=== PATIENT | male | born 1940 | race Caucasian/White ===

== ENCOUNTER 2020-06-10 16:47 | Outpatient (CLI) | payer MEDICARE ==
[2020-06-10 20:07] LABS: BASOPHILS % (AUTO) 0.5 %; EOSINOPHILS # (AUTO) 0.4 10^3/uL (0.0-0.7); EOSINOPHILS % (AUTO) 5.2 %; HGB - HEMOGLOBIN 13.3 g/dL (14.0-18.0); LYMPHOCYTES # (AUTO) 1.8 10^3/uL (1.5-3.5); LYMPHOCYTES % (AUTO) 22.8 %; MEAN CORPUSCULAR HEMOGLOBIN 31.7 pg (27.0-31.0); MEAN CORPUSCULAR HGB CONC 31.1 g/dL (32.0-36.0); MEAN CORPUSCULAR VOLUME 101.9 fL (80.0-94.0); MEAN PLATELET VOLUME 11.3 fL (7.4-11.4); MONOCYTES # (AUTO) 0.6 10^3/uL (0.0-1.0); MONOCYTES % (AUTO) 7.8 %; NEUTROPHILS # (AUTO) 5.1 10^3/uL (1.5-6.6); PLT - PLATELET COUNT 172 10^3/uL (130-450); RED BLOOD COUNT 4.19 10^6/uL (4.70-6.10); RED CELL DISTRIBUTION WIDTH 12.8 % (12.0-15.0); WHITE BLOOD COUNT 8.1 x10^3/uL (4.8-10.8)
[2020-06-10 20:23] LABS: ALBUMIN 3.7 g/dL (3.2-5.5); ALBUMIN/GLOBULIN RATIO 0.9 (1.0-2.2); ALKALINE PHOSPHATASE 83 IU/L (42-121); ALT ALANINE AMINOTRANSFERASE 16 IU/L (10-60); AST ASPARTATE AMINOTRANSFERASE 17 IU/L (10-42); BILIRUBIN,TOTAL 0.4 mg/dL (0.2-1.0); BUN - BLOOD UREA NITROGEN 22 mg/dL (6-20); CALCIUM 9.2 mg/dL (8.5-10.3); CARBON DIOXIDE - CO2 29 mmol/L (21-32); CHLORIDE 102 mmol/L (101-111); CHOL/HDL RATIO 3.4 (<5.0); CHOLESTEROL 186 mg/dL; CREATININE 1.2 mg/dL (0.6-1.2); GLUCOSE 109 mg/dL (70-100); HDL CHOLESTEROL 55 mg/dL; LDL CHOLESTEROL,CALCULATED 103 mg/dL; LDL/HDL RATIO 1.9 (<3.6); TOTAL PROTEIN 7.6 g/dL (6.7-8.2); VLDL CHOLESTEROL 28 mg/dL
== END 2020-06-10 18:00 ==
LOC: DI.S 16:47
PROVIDERS: ATTEND Internal Medicine
DX: I10 Essential (primary) hypertension (principal); M16.12 Unilateral primary osteoarthritis, left hip
CPT/HCPCS: 36415; 80053; 80061; 83721; 85025

== ENCOUNTER 2020-06-11 14:38 | Outpatient (CLI) | payer MEDICARE ==
--- NOTE | 2020-06-11 15:36 | XRAY Report ---
PROCEDURE: Hip w/Pelvis 2-3V LT INDICATIONS: ARTHRITIS, LEFT HIP TECHNIQUE: AP pelvis with lateral view(s) of the bilateral hip(s). COMPARISON: None. FINDINGS: Bones: No fractures or dislocations. Pelvic ring appears intact. No suspicious bony lesions. Righ t hip arthroplasty. Moderate left hip joint space narrowing. Mild left hip periarticular osteophyte f ormation. Left-sided femoral head buttressing. Soft tissues: The visualized bowel gas pattern is normal. No suspicious soft tissue calcifications. IMPRESSION: 1. Expected appearance of right hip arthroplasty. 2. 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 Further assess ment with MRI is recommended. Reviewed by: Ted Hammond MD on 06/11/2020 3:35 PM PST Approved by: Ted Hammond MD on 06/11/2020 3:35 PM PST Station ID: [id number]
== END 2020-06-11 14:39 | disposition home or self-care (01) ==
LOC: DI.S 14:38
PROVIDERS: ATTEND Internal Medicine
DX: M16.12 Unilateral primary osteoarthritis, left hip (principal); R93.6 Abnormal findings on diagnostic imaging of limbs; Z96.641 Presence of right artificial hip joint

== ENCOUNTER 2020-07-26 12:05 | Outpatient (CLI) | payer MEDICARE | END 2020-07-26 12:06 | disposition home or self-care (01) | LOC: LAB.S 12:05 | PROVIDERS: ATTEND Internal Medicine | DX: R35.8 Other polyuria (principal); Z12.5 Encounter for screening for malignant neoplasm of prostate | CPT/HCPCS: 36415; G0103; 84153 ==

== ENCOUNTER 2020-09-16 21:05 | Outpatient (CLI) | payer MEDICARE | END 2020-09-16 21:06 | disposition critical access hospital (66) | LOC: EMS 21:05 | DX: K22.2 Esophageal obstruction (principal) | CPT/HCPCS: A0425; A0429 ==

== ENCOUNTER 2020-09-16 21:36 | Day surgery (SDC) | payer MEDICARE ==
--- OUTSIDE RECORDS SUMMARY | 2020-09-16 21:43 | EXTERNAL MEDICAL SUMMARY RPT | Continuity of Care Document ---
:1940 Demographics Phone Unavailable Preferred Language Unknown Marital Status Unknown Adventism Affiliation Unknown Race Unknown Ethnic Group Unknown Author Organization [facility] Address [address] [phone] Phone Social History date description facility [phone]
[2020-09-16] MEDS ORDERED: GLUCAGON 1 MG/ML VIAL IVP STA (23:02)
--- NOTE | 2020-09-17 01:46 | ED Physician Documentation ---
History of Present Illness - Stated complaint Stated Complaint: DIFFICULTY SWALLOWING - Chief complaint Chief Complaint: Resp - History obtained from History obtained from: Patient - Additonal information Additional information: 80-year-old man with past medical history of high blood pressure and hyperlipidemia presents with bolus sensation in throat after eating dinner this evening of carrots and steak and swallowing acute bite of steak with sensation that it is stuck at the bottom of the esophagus. Patient is breathing normally and able to tolerate his saliva, however when he tries to drink he immediately spits it back up. He is in mild to moderate discomfort in the lower neck area, nonradiating, sudden in onset at the time of swallowing, constant. Review of Systems Nose: denies: Foreign Body Throat: reports: Swallowed foreign body Respiratory: denies: Dyspnea GI: reports: Vomiting. denies: Nausea PD PAST MEDICAL HISTORY - Past Medical History Past Medical History: No Cardiovascular: Hypertension, High cholesterol - Past Surgical History Past Surgical History: Yes General: Appendectomy Ortho: Hip replacement - Present Medications Home Medications: Ambulatory Orders Medication Instructions Recorded Confirmed Lisinopril [Zestril] 40 mg PO 09/16/20 Losartan [Cozaar] 09/16/20 - Allergies Allergies/Adverse Reactions: Allergies Allergy/AdvReac Type Severity Reaction Status Date / Time No Known Drug Allergies Allergy Verified 09/16/20 21:58 - Social History Does the pt smoke?: No Smoking Status: Never smoker Does the pt drink ETOH?: No Does the pt have substance abuse?: No - Immunizations Immunizations are current?: Yes PD ED PE NORMAL - Vitals Vital signs reviewed: Yes - General General: Alert and oriented X 3, No acute distress, Well developed/nourished - HEENT HEENT: Atraumatic, PERRL, EOMI, Pharynx benign - Neck Neck: Supple, no meningeal sign, Other (Normal upper respiratory transmitted sounds on auscultation of the neck) - Cardiac Cardiac: RRR - Respiratory Respiratory: No respiratory distress, Clear bilaterally Results - Vitals Vitals: Vital Signs - 24 hr 09/16/20 09/16/20 09/16/20 21:52 22:10 22:11 Temperature 36.4 C L Heart Rate 86 Respiratory 20 Rate Blood Pressure 179/99 H O2 Saturation 100 89 L 95 09/17/20 09/17/20 00:00 02:00 Temperature Heart Rate 79 71 Respiratory 16 18 Rate Blood Pressure 158/87 H 159/85 H O2 Saturation 93 97 Oxygen O2 Source Room air PD MEDICAL DECISION MAKING - ED course ED course: Child started antibiotics with glucagon treatment and patient was able to cough up a large piece of carrot however he still is unable to tolerate fluids. I gave him a second dose of soda drink very quickly and he vomited that up as well with more carrots. He reports that he still feels sensation of foreign body and believes it is a large piece of steak. Discussed with Dr. Burgess who says that she will come to scope in the morning and try to take it out. She requested that we admit him for observation in the meantime. Departure - Departure Disposition: ED Place in Observation Clinical Impression: Esophageal foreign body Condition: Good
[2020-09-17 06:31] LABS: B. PARAPERTUSSIS- RESP PCR PAN NOT DETECTED; B. PERTUSSIS- RESP PCR PANEL NOT DETECTED; C. PNEUMONIAE- RESP PCR PANEL NOT DETECTED; CORONAVIRUS 229E-RESP PCR NOT DETECTED; CORONAVIRUS HKU1-RESP PCR NOT DETECTED; CORONAVIRUS NL63-RESP PCR NOT DETECTED; CORONAVIRUS OC43-RESP PCR NOT DETECTED; HUMAN METAPNEUMOVIRUS NOT DETECTED; INFLUENZA A- RESP PCR PANEL NOT DETECTED; INFLUENZA B - RESP PCR PANEL NOT DETECTED; M. PNEUMONIAE- RESP PCR PANEL NOT DETECTED; PARAINFLUENZA VIRUS 1 NOT DETECTED; PARAINFLUENZA VIRUS 2 NOT DETECTED; PARAINFLUENZA VIRUS 3 NOT DETECTED; PARAINFLUENZA VIRUS 4 NOT DETECTED; RHINOVIRUS/ENTEROVIRUS NOT DETECTED; RSV- RESP PCR PANEL NOT DETECTED; SARS-CoV-2 -RESP PCR PANEL NOT DETECTED
[2020-09-17] MEDS ORDERED: PROPOFOL 200 MG/20 ML VIAL IVP ONE (09:00)
[2020-09-17] MEDS ORDERED: LIDOCAINE-MPF 2% 5 ML VIAL ONE (09:00)
[2020-09-17] MEDS ORDERED: fentaNYL 100 MCG/2 ML VIAL ONE (09:01)
[2020-09-17] MEDS ORDERED: SUCCINYLCHOLINE 200 MG/10 ML VIAL ONE (09:08)
--- NOTE | 2020-09-17 09:16 | XRAY Report ---
PROCEDURE: Chest 1 View X-Ray INDICATIONS: wheezing TECHNIQUE: One view of the chest was acquired. COMPARISON: None. FINDINGS: Surgical changes and devices: None. Lungs and pleura: There is slight pulmonary vascular prominence suggestive of mild pulmonary edema. No focal consolidation. No pleural effusions or pneumothorax. Mediastinum: Mediastinal contours appear normal. Heart size is normal. Bones and chest wall: No suspicious bony lesions. Overlying soft tissues appear unremarkable. IMPRESSION: 1. No focal consolidation. 2. Slight pulmonary vascular prominence may reflect mild edema. Reviewed by: Goran Dillon MD on 09/17/2020 9:15 AM PDT Approved by: Goran Dillon MD on 09/17/2020 9:15 AM PDT Station ID: [id number]
--- OUTSIDE RECORDS SUMMARY | 2020-09-17 09:25 | EXTERNAL MEDICAL SUMMARY RPT | Continuity of Care Document ---
:1940 Demographics Phone Unavailable Preferred Language Unknown Marital Status Unknown Jewish Affiliation Unknown Race Unknown Ethnic Group Unknown Author Organization [facility] Address [address] [phone] Phone Social History date description facility [phone]
--- NOTE | 2020-09-17 09:32 | HISTORY & PHYSICAL EXAMINATION ---
HPI - Admitted From Admitted from: ED - History Obtained From History obtained from: Patient Exam limitations: No limitations - History of Present Illness Pain/Problem Location Description: Steak stuck in throat HPI Comment/Other: 80-year-old man with past medical history of high blood pressure and hyperlipidemia presents with bolus sensation in throat after eating dinner this evening of carrots and steak and swallowing acute bite of steak with sensation that it is stuck at the bottom of the esophagus. Patient is breathing normally and able to tolerate his saliva, however when he tries to drink he immediately spits it back up. He is in mild to moderate discomfort in the lower neck area, nonradiating, sudden in onset at the time of swallowing, constant. He reports this has happened to him once before about 5 years ago. At that time it was a chicken bone. He denies any pain currently. He says the feeling in his esophagus has improved over night. He denies any pain otherwise. He denies any shortness of breath. PMH/PSH - Past Medical History Cardiovascular: positive: Hypertension, High cholesterol MRSA Hx?: No - Past Surgical History General: positive: Appendectomy Ortho: positive: Hip replacement Social & Family Hx - Social History Does the pt smoke?: No Smoking Status: Never smoker Does the pt drink ETOH?: No Does the pt have substance abuse?: No Meds/Allgy - Home Medications Home Medications: Ambulatory Orders Medication Instructions Recorded Confirmed Lisinopril [Zestril] 40 mg PO 09/16/20 Losartan [Cozaar] 09/16/20 - Allergies Allergies/Adverse Reactions: Allergies Allergy/AdvReac Type Severity Reaction Status Date / Time No Known Drug Allergies Allergy Verified 09/16/20 21:58 Review of Systems - All Other Systems All Other Systems: reports: Reviewed and negative (With the exception of what has been mentioned in the history of present illness) Exam - Vital Signs Reviewed Vital Signs: Yes Vital Signs: Vital Signs x48h Temp Pulse Resp BP Pulse Ox 09/17/20 07:00 75 18 134/78 H 94 09/17/20 05:36 36.7 C 74 20 141/66 H 96 09/17/20 04:00 36.9 C 71 18 168/84 H 94 09/17/20 02:00 71 18 159/85 H 97 - Physical Exam General Appearance: positive: No acute distress, Alert Eyes Bilateral: positive: Normal inspection, PERRL ENT: positive: ENT inspection nml, Other (Voice is hoarse and raspy but patient says it sounds normal to him.) Neck: positive: Trachea midline Respiratory: positive: Chest non-tender, No respiratory distress, Wheezes Cardiovascular: positive: Regular rate & rhythm Peripheral Pulses: positive: 0 Skin: positive: Color nml Extremities: positive: Non-tender Neurologic/Psychiatric: positive: Oriented x3 Results - Lab Results Other Lab Results: Lab Results x24hrs 09/17/ Range/Units 05:30 Nasal Adenovirus (PCR) NOT DETECTED Nasal B. parapertussis DNA (PCR) NOT DETECTED Nasal Coronavir 229E PCR NOT DETECTED Nasal Coronavir HKU1 PCR NOT DETECTED Nasal Coronavir NL63 PCR NOT DETECTED Nasal Coronavir OC43 PCR NOT DETECTED Nasal Enterovir/Rhinovir PCR NOT DETECTED Nasal Influenza B PCR NOT DETECTED Nasal Influenza A PCR NOT DETECTED Nasal Parainfluen 1 PCR NOT DETECTED Nasal Parainfluen 2 PCR NOT DETECTED Nasal Parainfluen 3 PCR NOT DETECTED Nasal Parainfluen 4 PCR NOT DETECTED Nasal RSV (PCR) NOT DETECTED Nasal B.pertussis DNA PCR NOT DETECTED Nasal C.pneumoniae (PCR) NOT DETECTED Eliud Human Metapneumo PCR NOT DETECTED Nasal M.pneumoniae (PCR) NOT DETECTED Nasal SARS-CoV-2 (PCR) NOT DETECTED - Diagnostic Imaging Results Diagnostic Imaging Results Comments: Chest x ray does not show any evidence of pneumonia or aspiration Impression/Plan - Problem List Problem List: I have recommended transfer to the OR for EGD with foreign body removal. We discussed the perils of this procedure and specifically the advantages of performing it in the light of day with all options available. We discussed the option of transfer to a higher level of care where other equiptment might be available and helpful. The patient has expressed understanding of the issues and verbal and written consent for the procedure. He understands that if I am unsuccessful at removing the steak, he will be transferred another facility.
[2020-09-17] MEDS ORDERED: PHENYLEPHRINE 10 MG/ML VIAL ONE (10:01)
[2020-09-17] MEDS ORDERED: LACTATED RINGERS 1,000 ML IV ONE (10:27)
[2020-09-17] MEDS ORDERED: NALOXONE 0.4 MG/ML VIAL IVP PRN (10:33)
[2020-09-17] MEDS ORDERED: fentaNYL 100 MCG/2 ML VIAL IVP PRN (10:33)
[2020-09-17] MEDS ORDERED: ATROPINE ABBOJECT 1 MG/10 ML SYRINGE IVP PRN (10:33)
[2020-09-17] MEDS ORDERED: HYDROmorphone 0.5 MG/0.5 ML SYRINGE IVP PRN (10:33)
[2020-09-17] MEDS ORDERED: ePHEDrine 50 MG/ML VIAL IVP PRN (10:33)
[2020-09-17] MEDS ORDERED: MORPHINE 2 MG/ML CARPUJECT IVP PRN (10:33)
[2020-09-17] MEDS ORDERED: METOCLOPRAMIDE 10 MG/2 ML VIAL IVP PRN (10:33)
[2020-09-17] MEDS ORDERED: ONDANSETRON 4 MG/2 ML VIAL IVP PRN (10:33)
--- NOTE | 2020-09-17 10:36 | ANESTHESIA ---
Pre-Anesthesia VS, & Labs - Diagnosis Esophageal foreign body - Procedure EGD with removal of FB Vital Signs: Temp Pulse Resp BP Pulse Ox 36.7 C 77 18 151/90 H 100 09/17/20 05:36 09/17/20 10:30 09/17/20 10:30 09/17/20 10:30 09/17/20 10:30 Height: 5 ft 9 in Weight (kg): 79.379 kg Body Mass Index: 25.8 BMI Classification: Overweight - NPO >8 hours Home Medications and Allergies Home Medications: Ambulatory Orders Lisinopril [Zestril] 40 mg PO 09/16/20 Losartan [Cozaar] 09/16/20 Lisinopril [Zestril] 40 mg PO 09/16/20 Losartan [Cozaar] 09/16/20 ASA 81mg daily Allergies/Adverse Reactions: Allergies Allergy/AdvReac Type Severity Reaction Status Date / Time No Known Drug Allergies Allergy Verified 09/16/20 21:58 Anes History & Medical History - Anesthetic History Anesthesia Complications: reports: No previous complications - Medical History Cardiovascular: reports: Hypertension, High cholesterol Pulmonary: reports: Sleep apnea Gastrointestinal: reports: None Urinary: reports: None Neuro: reports: None Musculoskeletal: reports: None Endocrine/Autoimmune: reports: None Blood Disorders: reports: None Skin: reports: None Smoking Status: Former smoker Psychosocial: reports: Alcohol (Daily wine) - Surgical History General: reports: Appendectomy Orthopedic: reports: Hip replacement Exam General: Alert, Oriented x3, Cooperative, No acute distress Dental: Poor dentition Mouth Openin Fingerbreadth Neck Mobility: Reduced Mallampati classification: III Thyromental Distance: less than 4 cm Respiratory: Decreased breath sounds, Wheezing (expiratory) Cardiovascular: Regular rate, Normal S1, Normal S2, No murmurs Mental/Cognitive Status: Alert/Oriented X3, Normal for patient Plan Anesthesia Type: General (with RSI) Consent for Procedure(s) Verified and Reviewed: Yes Code Status: Attempt Resuscitation ASA classification: 2-Mild systemic disease Is this case an emergency?: Yes
[2020-09-17] MEDS ORDERED: LORazepam 2 MG/ML VIAL ONE (10:51)
[2020-09-17] MEDS: LORazepam 2 MG/ML VIAL IVP PRN ×2 (10:55→11:00)
[2020-09-17] MEDS ORDERED: LACTATED RINGERS 1,000 ML IV SCH (11:00)
[2020-09-17 11:50] VITALS: BP 151/74
--- NOTE | 2020-09-17 12:34 | ANESTHESIA POST OP EVALUATION ---
Anesthesia Post Eval - Post Anesthesia Eval Vitals: Last Vital Signs Temp 36.9 C 09/17/20 10:27 Pulse 92 09/17/20 11:49 Resp 16 09/17/20 11:49 BP 151/74 H 09/17/20 11:49 Pulse Ox 93 09/17/20 11:49 CV Function Including HR & BP: Stable Pain Control: Satisfactory Nausea & Vomiting: Negative Mental Status: Patient Participates Respiratory Status: Airway Patent Hydration Status: Satisfactory Anesthesia Complications: None
== END 2020-09-17 08:59 | disposition home or self-care (01) ==
LOC: EDUNIT# → SUPCPDRO 21:36 → ED 21:36 → SDS 09-17 08:58
PROVIDERS: ATTEND Surgery
PROC: 0DC38ZZ Extirpation of Matter from Lower Esophagus, Via Natural or Artificial Opening Endoscopic (ICD-10-PCS; principal; 2020-09-17 08:30)
DX: T18.128A Food in esophagus causing other injury, initial encounter (principal); I10 Essential (primary) hypertension; E66.3 Overweight; Z68.25 Body mass index [BMI] 25.0-25.9, adult; Z20.822 Contact with and (suspected) exposure to COVID-19
CPT/HCPCS: 43247; 71045; 87631; 96374; 99283; 99285; J0330; J2060; J7120; 0202U

== ENCOUNTER 2020-10-01 15:39 | Outpatient (CLI) | payer MEDICARE | END 2020-10-01 15:40 | disposition home or self-care (01) | LOC: COV 15:39 | PROVIDERS: ATTEND Orthopaedic Surgery | DX: Z01.812 Encounter for preprocedural laboratory examination (principal); Z20.822 Contact with and (suspected) exposure to COVID-19 ==

== ENCOUNTER 2020-11-29 13:00 | Outpatient (CLI) | payer MEDICARE ==
--- NOTE | 2020-11-29 17:16 | XRAY Report ---
PROCEDURE: Hand 3 View RT INDICATIONS: FALL YESTERDAY PAIN AND BRUISING THUMB TECHNIQUE: 3 views of the hand(s) acquired. COMPARISON: None FINDINGS: Bones: No fractures or dislocations. No suspicious bony lesions. Age-appropriate degenerative lake ges are seen. Soft tissues: No suspicious soft tissue calcifications. IMPRESSION: No displaced fractures are seen on this plain study. In this patient with a given history of trauma, please correlate with focal tenderness. If clinically appropriate, please consider a short-term follow-up plain films series versus a dedicated CT study. Reviewed by: Michael Lockwood MD on 11/29/2020 4:15 PM JENAE Approved by: Michael Lockwood MD on 11/29/2020 4:15 PM [email or web address] Station ID: [id number]
== END 2020-11-29 13:01 | disposition home or self-care (01) ==
LOC: DI.S 13:00
PROVIDERS: ATTEND Physician Assistant
DX: S60.221A Contusion of right hand, initial encounter (principal)

== ENCOUNTER 2020-12-27 10:52 | Outpatient (CLI) | payer MEDICARE ==
[2020-12-27 15:00] LABS: BASOPHILS % (AUTO) 0.5 %; EOSINOPHILS # (AUTO) 0.2 10^3/uL (0.0-0.7); EOSINOPHILS % (AUTO) 3.2 %; HCT - HEMATOCRIT 37.8 % (42.0-52.0); HGB - HEMOGLOBIN 11.3 g/dL (14.0-18.0); LYMPHOCYTES # (AUTO) 1.3 10^3/uL (1.5-3.5); LYMPHOCYTES % (AUTO) 17.5 %; MEAN CORPUSCULAR HEMOGLOBIN 29.7 pg (27.0-31.0); MEAN CORPUSCULAR HGB CONC 29.9 g/dL (32.0-36.0); MEAN CORPUSCULAR VOLUME 99.2 fL (80.0-94.0); MEAN PLATELET VOLUME 10.8 fL (7.4-11.4); MONOCYTES # (AUTO) 0.5 10^3/uL (0.0-1.0); MONOCYTES % (AUTO) 6.7 %; NEUTROPHILS # (AUTO) 5.3 10^3/uL (1.5-6.6); NEUTROPHILS % (AUTO) 71.8 %; PLT - PLATELET COUNT 244 10^3/uL (130-450); RED BLOOD COUNT 3.81 10^6/uL (4.70-6.10); RED CELL DISTRIBUTION WIDTH 13.3 % (12.0-15.0); WHITE BLOOD COUNT 7.4 x10^3/uL (4.8-10.8)
[2020-12-27 15:11] LABS: ALBUMIN 3.5 g/dL (3.2-5.5); ALBUMIN/GLOBULIN RATIO 0.8 (1.0-2.2); BILIRUBIN,TOTAL 0.7 mg/dL (0.2-1.0); CALCIUM 9.2 mg/dL (8.5-10.3); POTASSIUM 4.5 mmol/L (3.5-5.0); TOTAL PROTEIN 7.9 g/dL (6.7-8.2)
[2020-12-27 20:15] LABS: ESTIMATED AVERAGE GLUCOSE 111 mg/dL (70-100); HEMOGLOBIN A1c% 5.5 % (4.27-6.07)
== END 2020-12-27 10:53 | disposition home or self-care (01) ==
LOC: LAB.S 10:52
PROVIDERS: ATTEND Internal Medicine
DX: R35.8 Other polyuria (principal); Z12.5 Encounter for screening for malignant neoplasm of prostate; I10 Essential (primary) hypertension; R73.9 Hyperglycemia, unspecified
CPT/HCPCS: 36415; 80053; 83036; 85025; G0103; 84153

== ENCOUNTER 2020-12-29 15:44 | Outpatient (CLI) | payer MEDICARE | END 2020-12-29 15:45 | disposition critical access hospital (66) | LOC: EMS 15:44 | DX: S05.42XA Penetrating wound of orbit with or without foreign body, left eye, initial encounter (principal); W18.39XA Other fall on same level, initial encounter; W22.09XA Striking against other stationary object, initial encounter; Y93.01 Activity, walking, marching and hiking; Y92.002 Bathroom of unspecified non-institutional (private) residence as the place of occurrence of the external cause | CPT/HCPCS: A0425; A0427 ==

== ENCOUNTER 2020-12-29 16:17 | Emergency (ER) | payer MEDICARE ==
--- NOTE | 2020-12-29 16:28 | ED Physician Documentation ---
PD HPI Fall - Stated complaint Stated Complaint: FALL/HEAD LAC - History obtained from History obtained from: Patient, EMS - History of Present Illness Mechanism of injury: Tripped (He states his foot caught on a uneven surface and fell forward striking his forehead and top of his head. He denied any preceding symptoms. He remained conscious through the event. Has a frontal headache and some mild neck pain. 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 No: Chest, Abdomen Quality of pain: Aching (main injury is lac/swelling on forehead left front. Abrasion to of head.) Associated symptoms: No: LOC, AMS, Weakness, Paresthesias, Nausea / vomiting Symptoms improve with: Rest Worsens with: Palpation Contributing factors: No: Anticoagulated, Intoxicated Similar symptoms before: Has not had sx before Recently seen: Not recently seen Review of Systems Constitutional: denies: Fever, Chills Eyes: denies: Decreased vision Nose: denies: Rhinorrhea / runny nose, Congestion Throat: denies: Sore throat Cardiac: denies: Chest pain / pressure, Palpitations Respiratory: denies: Cough GI: denies: Abdominal Pain, Nausea, Vomiting Skin: reports: Laceration (s) (left forehead). denies: Rash, Lesions Musculoskeletal: reports: Neck pain (mild soreness with ROM.). denies: Back pain Neurologic: denies: Focal weakness, Numbness, Altered mental status PD PAST MEDICAL HISTORY - Past Medical History Cardiovascular: Hypertension, High cholesterol Respiratory: Sleep apnea Neuro: None Endocrine/Autoimmune: None GI: None : None Musculoskeletal: None Derm: None - Past Surgical History Past Surgical History: Yes General: Appendectomy Ortho: Hip replacement - Present Medications Home Medications: Ambulatory Orders Medication Instructions Recorded Confirmed Lisinopril [Zestril] 40 mg PO 09/16/20 Aspirin [Aspirin EC] 81 mg PO DAILY 12/29/20 12/29/20 Diphenoxylate/Atropine [Lomotil] 1 tab BID PRN 12/29/20 12/29/20 Doxazosin Mesylate [Cardura] 2 mg PO 12/29/20 Furosemide [Lasix] 10 mg DAILY 12/29/20 12/29/20 Lovastatin [Altoprev] 20 mg PO 12/29/20 Metoprolol Succinate [Toprol Xl] 25 mg PO DAILY 12/29/20 12/29/20 - Allergies Allergies/Adverse Reactions: Allergies Allergy/AdvReac Type Severity Reaction Status Date / Time No Known Drug Allergies Allergy Verified 12/29/20 16:32 - Social History Does the pt smoke?: No Smoking Status: Former smoker Does the pt drink ETOH?: No Does the pt have substance abuse?: No - Immunizations Immunizations are current?: Yes PD ED PE NORMAL - Vitals Vital signs reviewed: Yes - General General: Alert and oriented X 3, No acute distress (dried blood on face and left side of neck, hands. No injuries on extremities though. Left forehead lac 2.6 cm, with mild bleeding. Abrasion top of head without lac. ), Well developed/nourished, Other (collar in place) - HEENT HEENT: PERRL, EOMI - Neck Neck: Supple, no meningeal sign, No bony TTP, No adenopathy - Cardiac Cardiac: RRR, No murmur - Respiratory Respiratory: Clear bilaterally, Other (no chestwall tenderness) - Abdomen Abdomen: Soft, Non tender - Back Back: No CVA TTP, Other (mild tenderness lower paracervical muscles. He is having some ROM of the neck with collar on without notable pain. ) - Derm Derm: Normal color, Warm and dry, No rash - Extremities Extremities: No tenderness to palpate, Normal ROM s pain, No edema, No calf tenderness / cord - Neuro Neuro: Alert and oriented X 3, divisional storekeeper 2-12 intact, No motor deficit (strong procurement technician and full ROM of extremities. ), No sensory deficit, Normal speech Results - Vitals Vitals: Vital Signs - 24 hr 12/29/20 12/29/20 16:16 17:27 Temperature 37.3 C Heart Rate 81 75 Respiratory 18 14 Rate Blood Pressure 161/83 H 134/79 H O2 Saturation 99 100 Oxygen O2 Source Room air - Labs Labs: Laboratory Tests 12/29/20 12/29/20 12/29/20 17:31 17:31 17:31 WBC 9.8 RBC 3.62 L Hgb 11.1 L Hct 34.6 L MCV 95.6 H MCH 30.7 MCHC 32.1 RDW 13.0 Plt Count 223 MPV 10.0 Neut # (Auto) 7.5 H Lymph # (Auto) 1.4 L [place] # (Auto) 0.6 Eos # (Auto) 0.2 Baso # (Auto) 0.0 Absolute Nucleated RBC 0.00 Nucleated RBC % 0.0 PT 12.8 H INR 1.2 APTT 27.2 Sodium 136 Potassium 4.8 Chloride 100 L Carbon Dioxide 28 Anion Gap 8.0 BUN 23 H Creatinine 1.1 Estimated GFR (MDRD) 64 L Glucose 101 H Calcium 8.7 Total Bilirubin 0.6 AST 17 ALT 12 Alkaline Phosphatase 102 Total Protein 7.5 Albumin 3.4 Globulin 4.1 Albumin/Globulin Ratio 0.8 L Lipase 20 L - Rads (name of study) head CT Radiology: Prelim report reviewed (small right posterior subdural hematoma. No mass effect. ), Discussed with rads, See rad report cervical spine CT Radiology: Prelim report reviewed, Discussed with rads (ligamentous avulsion x C5 facet; stable injury. ), See rad report Procedures - Laceration (location) left forehead Length in cm: 2.6 Wound type: Irregular (laceration lower part into abrasion upper part.), Into subcut fat, Clean Neurovascular status: Sensory intact Anesthesia: LET Wound preparation: Irrigated copiously NS, Wound explored, To the base Skin layer closure: Nylon, Running, Size #-0 - enter number (5), Sutures - enter # (8) Other: Patient tolerated well, No complications, Neurovascular intact, Tetanus UTD PD MEDICAL DECISION MAKING - ED course Complexity details: reviewed results, re-evaluated patient (the spine injury is stable and pt is uncomfortable with collar, moving head around some. I removed the collar after discussion with Radiologist. Patient lying still on cart. ), considered differential (pleasant and vigorous appearing person, remembers the injury well, with mechanical fall and face/head injury. No truncal injury nor extremities. ), d/w patient, d/w portrait consultant (Trauma sugeon at [facility] Selby and also ED attending, Walker Garcia.) - Critical Care Time(min): 30 Time Includes: Direct patient care, Reassess patient, Document care, Coordinate care Data interpretation: Labs, Pulse ox Departure - Departure Disposition: 02 Transfer Acute Care Hosp Clinical Impression: Acute subdural hematoma, Neck fracture Fall from slip, trip, or stumble Qualifiers: Encounter type: initial encounter Qualified Code(s): W01.0XXA - Fall on same level from slipping, tripping and stumbling without subsequent striking against object, initial encounter Forehead laceration Qualifiers: Encounter type: initial encounter Qualified Code(s): S01.81XA - Laceration without foreign body of other part of head, initial encounter Condition: Stable Record reviewed to determine appropriate education?: Yes
[2020-12-29] MEDS ORDERED: LIDOCAINE-EPINEPH-TETRACAINE 3 ML SYRINGE TOP STA (16:40)
[2020-12-29] MEDS ORDERED: ACETAMINOPHEN 325 MG TABLET PO STA (16:41)
--- NOTE | 2020-12-29 17:17 | CT Report ---
PROCEDURE: HEAD WO INDICATIONS: fall and struck top of head. normal neuro TECHNIQUE: Noncontrast 4.5 mm thick angled axial sections acquired from the foramen magnum to the vertex. For r adiation dose reduction, the following was used: automated exposure control, adjustment of mA and/or kV according to patient size. COMPARISON: None. FINDINGS: Image quality: Excellent. CSF spaces: Basilar cisterns and ventricular system are patent. Brain: There is an acute subdural hematoma overlying the posterior right cerebral convexity. This maty sures approximately 5 mm in maximum thickness. No significant mass effect upon the subjacent parenchy ma. Lala-white matter interface is normal. Small intracranial small intracranial lipoma along the pos terior falx overlying the pineal region. The lala-white matter differentiation is maintained. Skull and face: Left frontal scalp contusion. Calvarium and visualized facial bones are intact, with out suspicious lesions. Sinuses: Visualized sinuses and mastoids are clear. IMPRESSION: Small subdural hemorrhage overlying the right posterior cerebral convexity. Left frontal scalp contusion. Findings were discussed with Dr. Sprague at 5:15 PM on 12/29/2020. Reviewed by: Tex Rahman MD on 12/29/2020 5:16 PM PDT Approved by: Tex Rahman MD on 12/29/2020 5:16 PM PDT Station ID: [id number]
--- NOTE | 2020-12-29 17:22 | CT Report ---
PROCEDURE: CERVICAL SPINE WO INDICATIONS: Trauma, fall, neck pain TECHNIQUE: Noncontrast 3 mm thick sections acquired from the skull base to the T4 level. Sagittal and coronal r eformats were then constructed. For radiation dose reduction, the following was used: automated exp osure control, adjustment of mA and/or kV according to patient size. COMPARISON: None. FINDINGS: Image quality: Excellent. Bones: There is a tiny capsulo-ligamentous avulsion type fracture of the inferior right C5 facet proc ess (series 7 image 55). There is no additional fracture. Visualized superior ribs are intact. Findin gs of diffuse idiopathic skeletal hyperostosis with large bulky fused osteophytes anteriorly. Mild sp ondylitic changes along with mild uncovertebral spurring and minimal facet hypertrophy. Soft tissues: Prevertebral soft tissues are normal in thickness. No paravertebral hematomas. No ap ical pneumothoraces. IMPRESSION: Tiny capsular ligamentous avulsion type fracture of the inferior right C5 facet process. Reviewed by: Tex Rahman MD on 12/29/2020 5:21 PM PDT Approved by: Tex Rahman MD on 12/29/2020 5:21 PM PDT Station ID: [id number]
[2020-12-29 17:36] LABS: BASOPHILS % (AUTO) 0.4 %; EOSINOPHILS # (AUTO) 0.2 10^3/uL (0.0-0.7); HCT - HEMATOCRIT 34.6 % (42.0-52.0); HGB - HEMOGLOBIN 11.1 g/dL (14.0-18.0); LYMPHOCYTES # (AUTO) 1.4 10^3/uL (1.5-3.5); LYMPHOCYTES % (AUTO) 14.1 %; MEAN CORPUSCULAR HEMOGLOBIN 30.7 pg (27.0-31.0); MEAN CORPUSCULAR HGB CONC 32.1 g/dL (32.0-36.0); MEAN CORPUSCULAR VOLUME 95.6 fL (80.0-94.0); MONOCYTES # (AUTO) 0.6 10^3/uL (0.0-1.0); MONOCYTES % (AUTO) 6.4 %; NEUTROPHILS # (AUTO) 7.5 10^3/uL (1.5-6.6); NEUTROPHILS % (AUTO) 76.6 %; PLT - PLATELET COUNT 223 10^3/uL (130-450); RED BLOOD COUNT 3.62 10^6/uL (4.70-6.10); WHITE BLOOD COUNT 9.8 x10^3/uL (4.8-10.8)
[2020-12-29 17:41] LABS: INR 1.2 (0.8-1.2); PT - PROTHROMBIN TIME 12.8 secs (9.9-12.6)
[2020-12-29 17:48] LABS: PARTIAL THROMBOPLASTIN TIME 27.2 secs (24.9-33.3)
[2020-12-29 17:49] LABS: ALBUMIN 3.4 g/dL (3.2-5.5); ALBUMIN/GLOBULIN RATIO 0.8 (1.0-2.2); BILIRUBIN,TOTAL 0.6 mg/dL (0.2-1.0); CALCIUM 8.7 mg/dL (8.5-10.3); CREATININE 1.1 mg/dL (0.6-1.2); POTASSIUM 4.8 mmol/L (3.5-5.0); TOTAL PROTEIN 7.5 g/dL (6.7-8.2)
[2020-12-29 18:39] LABS: B. PARAPERTUSSIS- RESP PCR PAN NOT DETECTED; B. PERTUSSIS- RESP PCR PANEL NOT DETECTED; C. PNEUMONIAE- RESP PCR PANEL NOT DETECTED; CORONAVIRUS 229E-RESP PCR NOT DETECTED; CORONAVIRUS HKU1-RESP PCR NOT DETECTED; CORONAVIRUS NL63-RESP PCR NOT DETECTED; CORONAVIRUS OC43-RESP PCR NOT DETECTED; HUMAN METAPNEUMOVIRUS NOT DETECTED; INFLUENZA A- RESP PCR PANEL NOT DETECTED; INFLUENZA B - RESP PCR PANEL NOT DETECTED; M. PNEUMONIAE- RESP PCR PANEL NOT DETECTED; PARAINFLUENZA VIRUS 1 NOT DETECTED; PARAINFLUENZA VIRUS 2 NOT DETECTED; PARAINFLUENZA VIRUS 3 NOT DETECTED; PARAINFLUENZA VIRUS 4 NOT DETECTED; RHINOVIRUS/ENTEROVIRUS NOT DETECTED; RSV- RESP PCR PANEL NOT DETECTED; SARS-CoV-2 -RESP PCR PANEL NOT DETECTED
[2020-12-29 19:09] VITALS: BP 144/78
== END 2020-12-29 19:35 | disposition short-term general hospital (02) ==
LOC: EDUNIT# → ED 16:17
DX: S06.5X0A Traumatic subdural hemorrhage without loss of consciousness, initial encounter (principal); S12.400A Unspecified displaced fracture of fifth cervical vertebra, initial encounter for closed fracture; S01.81XA Laceration without foreign body of other part of head, initial encounter; W01.10XA Fall on same level from slipping, tripping and stumbling with subsequent striking against unspecified object, initial encounter; Y93.01 Activity, walking, marching and hiking; Y92.009 Unspecified place in unspecified non-institutional (private) residence as the place of occurrence of the external cause; Z87.891 Personal history of nicotine dependence; Z20.822 Contact with and (suspected) exposure to COVID-19
CPT/HCPCS: 12013; 36415; 70450; 72125; 80053; 83690; 85025; 85610; 85730; 87631; 93005; 99285; 99291; A9270; 0202U

== ENCOUNTER 2020-12-29 19:27 | Outpatient (CLI) | payer MEDICARE | END 2020-12-29 19:28 | disposition short-term general hospital (02) | LOC: EMS 19:27 | PROVIDERS: ATTEND Emergency Medicine | DX: S06.5X9A Traumatic subdural hemorrhage with loss of consciousness of unspecified duration, initial encounter (principal); S12.8XXA Fracture of other parts of neck, initial encounter; W19.XXXA Unspecified fall, initial encounter | CPT/HCPCS: A0425; A0428 ==

== ENCOUNTER 2021-03-05 18:01 | Emergency (ER) | payer MEDICARE ==
--- NOTE | 2021-03-05 18:42 | ED Physician Documentation ---
History of Present Illness - Stated complaint Stated Complaint: HEAD WOUND, FEEDING TUBE ISSUE - Chief complaint Chief Complaint: General - History obtained from History obtained from: Patient - Additonal information Additional information: 80 yo male presents with concern for PEG tube site infection. On 12/29 had subdural hemorrhage and C5 fracture and ended up with PEG tube. no Fevers/chills. 3 days of redness around the PEG tube site. Ancillary complaint of wound on the top of the head. Unknown length of time. Review of Systems Ten Systems: 10 systems reviewed and negative PD PAST MEDICAL HISTORY - Past Medical History Past Medical History: Yes Cardiovascular: Hypertension, High cholesterol Respiratory: Sleep apnea Neuro: None Endocrine/Autoimmune: None GI: None : None HEENT: Chronic hearing loss Musculoskeletal: None Derm: None - Past Surgical History Past Surgical History: Yes General: Appendectomy Ortho: Hip replacement - Present Medications Home Medications: Ambulatory Orders Medication Instructions Recorded Confirmed Lisinopril [Zestril] 40 mg PO 09/16/20 Aspirin [Aspirin EC] 81 mg PO DAILY 12/29/20 12/29/20 Diphenoxylate/Atropine [Lomotil] 1 tab BID PRN 12/29/20 12/29/20 Doxazosin Mesylate [Cardura] 2 mg PO 12/29/20 Furosemide [Lasix] 10 mg DAILY 12/29/20 12/29/20 Lovastatin [Altoprev] 20 mg PO 12/29/20 Metoprolol Succinate [Toprol Xl] 25 mg PO DAILY 12/29/20 12/29/20 cephALEXin [Keflex] 500 mg PO Q6H #28 cap 03/05/21 - Allergies Allergies/Adverse Reactions: Allergies Allergy/AdvReac Type Severity Reaction Status Date / Time No Known Drug Allergies Allergy Verified 03/05/21 18:15 - Social History Does the pt smoke?: No Smoking Status: Never smoker Does the pt drink ETOH?: No Does the pt have substance abuse?: No - Immunizations Immunizations are current?: Yes PD ED PE NORMAL - Vitals Vital signs reviewed: Yes - General General: Alert and oriented X 3, No acute distress - HEENT HEENT: Other (He has a craniotomy incision going around from the right supra auricular area posteriorly and then to the midline vertex. There are just some pinpoint areas of purulence towards the vertex of the scalp. That is sent for culture.) - Abdomen Abdomen: Other (There is some redness around the PEG tube, no purulent drainage. No abdominal tenderness.) - Neuro Neuro: Alert and oriented X 3, Normal speech Results - Vitals Vitals: Vital Signs - 24 hr 03/05/21 03/05/21 18:07 18:35 Temperature 36.5 C 36.1 C L Heart Rate 74 86 Respiratory 20 18 Rate Blood Pressure 151/77 H 158/81 H O2 Saturation 97 98 Oxygen O2 Source Room air PD MEDICAL DECISION MAKING - ED course ED course: He does not use the PEG tube anymore, he is completely orally fed and would like the PEG tube removed. It was removed and he was counseled on care of the site. Departure - Departure Disposition: 01 Home, Self Care Clinical Impression: Pain around PEG tube site Qualifiers: Encounter type: initial encounter Qualified Code(s): T85.848A - Pain due to other internal prosthetic devices, implants and grafts, initial encounter Cellulitis Qualifiers: Site of cellulitis: head Qualified Code(s): L03.811 - Cellulitis of head [any part, except face] Condition: Good Record reviewed to determine appropriate education?: Yes Instructions: ED Infec Skin Cellulitis Prescriptions: cephALEXin [Keflex] 500 mg PO Q6H #28 cap Comments: Today we saw you for very mild wound infections around your PEG tube and the top of your craniotomy incision. We have removed the PEG tube. It will leak for a few days, and you will need to keep gauze over the site. That said the whole should close up over the next couple of days. Return for new or worsening symptoms. Follow-up with your doctor, next available appointment.
[2021-03-05] MEDS ORDERED: cephALEXin 250 MG CAPSULE PO STA (18:53)
[2021-03-05 19:24] VITALS: BP 134/83
== END 2021-03-05 19:22 | disposition home or self-care (01) ==
LOC: ED 18:01
DX: L76.82 Other postprocedural complications of skin and subcutaneous tissue (principal); L03.811 Cellulitis of head [any part, except face]; Y83.8 Other surgical procedures as the cause of abnormal reaction of the patient, or of later complication, without mention of misadventure at the time of the procedure; T85.848A Pain due to other internal prosthetic devices, implants and grafts, initial encounter; Y73.8 Miscellaneous gastroenterology and urology devices associated with adverse incidents, not elsewhere classified; I10 Essential (primary) hypertension; G47.30 Sleep apnea, unspecified; H91.90 Unspecified hearing loss, unspecified ear; Z79.82 Long term (current) use of aspirin; Z79.899 Other long term (current) drug therapy
CPT/HCPCS: 87070; 87181; 87205; 99283; A9270

== ENCOUNTER 2021-05-24 08:00 | Outpatient (CLI) | payer MEDICARE | END 2021-05-24 23:59 | LOC: LAB.S 08:00 | PROVIDERS: ATTEND Emergency Medicine | DX: L72.3 Sebaceous cyst (principal) | CPT/HCPCS: 87070; 87181; 87205 ==

== ENCOUNTER 2021-07-19 13:46 | Outpatient (CLI) | payer MEDICARE ==
[2021-07-19 19:48] LABS: BASOPHILS # (AUTO) 0.1 10^3/uL (0.0-0.1); BASOPHILS % (AUTO) 0.7 %; EOSINOPHILS # (AUTO) 0.3 10^3/uL (0.0-0.7); EOSINOPHILS % (AUTO) 3.6 %; HCT - HEMATOCRIT 39.6 % (42.0-52.0); HGB - HEMOGLOBIN 12.2 g/dL (14.0-18.0); LYMPHOCYTES # (AUTO) 1.5 10^3/uL (1.5-3.5); LYMPHOCYTES % (AUTO) 18.2 %; MEAN CORPUSCULAR HGB CONC 30.8 g/dL (32.0-36.0); MEAN CORPUSCULAR VOLUME 97.3 fL (80.0-94.0); MEAN PLATELET VOLUME 11.3 fL (7.4-11.4); MONOCYTES # (AUTO) 0.7 10^3/uL (0.0-1.0); MONOCYTES % (AUTO) 8.9 %; NEUTROPHILS # (AUTO) 5.7 10^3/uL (1.5-6.6); NEUTROPHILS % (AUTO) 68.1 %; PLT - PLATELET COUNT 211 10^3/uL (130-450); RED BLOOD COUNT 4.07 10^6/uL (4.70-6.10); RED CELL DISTRIBUTION WIDTH 15.9 % (12.0-15.0); WHITE BLOOD COUNT 8.4 x10^3/uL (4.8-10.8)
[2021-07-19 19:54] LABS: ALBUMIN 3.5 g/dL (3.2-5.5); ALBUMIN/GLOBULIN RATIO 0.8 (1.0-2.2); BILIRUBIN,TOTAL 0.3 mg/dL (0.2-1.0); CALCIUM 9.4 mg/dL (8.5-10.3); CREATININE 1.1 mg/dL (0.6-1.2); POTASSIUM 4.6 mmol/L (3.5-5.0); TOTAL PROTEIN 8.1 g/dL (6.7-8.2)
== END 2021-07-19 13:47 | disposition home or self-care (01) ==
LOC: LAB.S 13:46
PROVIDERS: ATTEND Internal Medicine
DX: I10 Essential (primary) hypertension (principal)
CPT/HCPCS: 36415; 80053; 85025

== ENCOUNTER 2021-09-23 21:24 | Outpatient (CLI) | payer MEDICARE | END 2021-09-23 21:25 | disposition EMS.NT | LOC: EMS 21:24 | DX: R53.1 Weakness (principal) ==

== ENCOUNTER 2021-10-01 08:00 | Outpatient (CLI) | payer MEDICARE ==
--- NOTE | 2021-10-01 12:10 | XRAY Report ---
PROCEDURE: Chest 2 View X-Ray INDICATIONS: WHEEZING TECHNIQUE: 2 view(s) of the chest. COMPARISON: 09/17/2020 FINDINGS: Surgical changes and devices: None. Lungs and pleura: No pleural effusions or pneumothorax. Mild perihilar opacity and peribronchial cuf fing. Mediastinum: Mediastinal contours are normal. Heart size is normal. Bones and chest wall: No suspicious bony abnormalities. Soft tissues appear unremarkable. IMPRESSION: Mild bronchopneumonia. Reviewed by: Ted Hammond MD on 10/01/2021 12:08 PM PDT Approved by: Ted Hammond MD on 10/01/2021 12:08 PM PDT Station ID: [id number]
[2021-10-01 15:43] LABS: BASOPHILS # (AUTO) 0.1 10^3/uL (0.0-0.1); BASOPHILS % (AUTO) 0.6 %; EOSINOPHILS # (AUTO) 0.3 10^3/uL (0.0-0.7); EOSINOPHILS % (AUTO) 3.6 %; HCT - HEMATOCRIT 42.4 % (42.0-52.0); HGB - HEMOGLOBIN 13.2 g/dL (14.0-18.0); LYMPHOCYTES # (AUTO) 1.3 10^3/uL (1.5-3.5); LYMPHOCYTES % (AUTO) 15.1 %; MEAN CORPUSCULAR HEMOGLOBIN 30.1 pg (27.0-31.0); MEAN CORPUSCULAR HGB CONC 31.1 g/dL (32.0-36.0); MEAN CORPUSCULAR VOLUME 96.6 fL (80.0-94.0); MEAN PLATELET VOLUME 11.4 fL (7.4-11.4); MONOCYTES # (AUTO) 0.7 10^3/uL (0.0-1.0); NEUTROPHILS # (AUTO) 6.3 10^3/uL (1.5-6.6); NEUTROPHILS % (AUTO) 72.2 %; PLT - PLATELET COUNT 224 10^3/uL (130-450); RED BLOOD COUNT 4.39 10^6/uL (4.70-6.10); RED CELL DISTRIBUTION WIDTH 13.6 % (12.0-15.0); WHITE BLOOD COUNT 8.8 x10^3/uL (4.8-10.8)
[2021-10-01 16:02] LABS: ALBUMIN 3.2 g/dL (3.2-5.5); ALBUMIN/GLOBULIN RATIO 0.7 (1.0-2.2); BILIRUBIN,TOTAL 0.3 mg/dL (0.2-1.0); CALCIUM 9.4 mg/dL (8.5-10.3); CREATININE 1.1 mg/dL (0.6-1.2); POTASSIUM 4.5 mmol/L (3.5-5.0); TOTAL PROTEIN 7.8 g/dL (6.7-8.2)
== END 2021-10-01 23:59 | disposition home or self-care (01) ==
LOC: DI.S 08:00
PROVIDERS: ATTEND Physician Assistant
DX: J18.0 Bronchopneumonia, unspecified organism (principal); R60.9 Edema, unspecified
CPT/HCPCS: 36415; 80053; 83880; 85025

== ENCOUNTER → 2022-04-19 | Outpatient (CLI) | payer MEDICARE | END | disposition EMS.NT | LOC: EMS 19:07 | DX: R53.1 Weakness (principal) ==

== ENCOUNTER 2022-06-20 00:44 | Outpatient (CLI) | payer MEDICARE | END 2022-06-20 00:45 | disposition EMS.NT | LOC: EMS 00:44 | DX: Z03.89 Encounter for observation for other suspected diseases and conditions ruled out (principal) ==

== ENCOUNTER 2022-07-19 18:10 | Emergency (ER) | payer MEDICARE ==
[2022-07-19 19:11] LABS: BASOPHILS # (AUTO) 0.1 10^3/uL (0.0-0.1); BASOPHILS % (AUTO) 0.5 %; EOSINOPHILS # (AUTO) 0.4 10^3/uL (0.0-0.7); EOSINOPHILS % (AUTO) 4.6 %; HCT - HEMATOCRIT 39.6 % (42.0-52.0); HGB - HEMOGLOBIN 12.3 g/dL (14.0-18.0); LYMPHOCYTES # (AUTO) 1.4 10^3/uL (1.5-3.5); LYMPHOCYTES % (AUTO) 15.2 %; MEAN CORPUSCULAR HEMOGLOBIN 29.6 pg (27.0-31.0); MEAN CORPUSCULAR HGB CONC 31.1 g/dL (32.0-36.0); MEAN CORPUSCULAR VOLUME 95.2 fL (80.0-94.0); MEAN PLATELET VOLUME 12.2 fL (7.4-11.4); MONOCYTES # (AUTO) 0.6 10^3/uL (0.0-1.0); NEUTROPHILS # (AUTO) 6.6 10^3/uL (1.5-6.6); NEUTROPHILS % (AUTO) 72.3 %; PLT - PLATELET COUNT 124 10^3/uL (130-450); RED BLOOD COUNT 4.16 10^6/uL (4.70-6.10); RED CELL DISTRIBUTION WIDTH 12.4 % (12.0-15.0); WHITE BLOOD COUNT 9.2 x10^3/uL (4.8-10.8)
--- NOTE | 2022-07-19 19:21 | XRAY Report ---
PROCEDURE: Chest 1 View X-Ray INDICATIONS: chest pain TECHNIQUE: One view of the chest was acquired. COMPARISON: 10/01/2021 FINDINGS: Surgical changes and devices: None. Lungs and pleura: Low lung volumes can be seen, with mild interstitial prominence. On this semiuprig ht study, no large pneumothorax is seen. There is a likely small left-sided pleural effusion. Mediastinum: Mediastinal contours appear normal. Heart size isCalcification is seen of the aortic a rch. Bones and chest wall: No suspicious bony lesions. Age-appropriate degenerative changes are seen. Overlying soft tissues appear unremarkable. IMPRESSION: Please consider CHF in this patient with a mildly enlarged cardiac silhouette, a likely small left-si ded pleural effusion and mild generalized interstitial prominence. Low lung volumes. Reviewed by: Michael Lockwood MD on 07/19/2022 6:20 PM [place] Approved by: Michael Lockwood MD on 07/19/2022 6:20 PM [facility] Station ID: [id number]
[2022-07-19 19:26] LABS: ALBUMIN 3.2 g/dL (3.2-5.5); ALBUMIN/GLOBULIN RATIO 0.8 (1.0-2.2); BILIRUBIN,TOTAL 0.4 mg/dL (0.2-1.0); CALCIUM 9.1 mg/dL (8.5-10.3); CREATININE 1.1 mg/dL (0.6-1.2); MAGNESIUM 2.2 mg/dL (1.7-2.8); POTASSIUM 3.8 mmol/L (3.5-5.0); TOTAL PROTEIN 7.3 g/dL (6.7-8.2)
--- NOTE | 2022-07-19 19:43 | ED Physician Documentation ---
History of Present Illness - Stated complaint Stated Complaint: GLF - Chief complaint Chief Complaint: General - History obtained from History obtained from: Patient - Additonal information Additional information: HPI from patient. Patient is brought in by ambulance due to a fall earlier tonight. Patient tells me that he slipped when he was trying to go from standing to sitting into his recliner chair. He says he did fall to the ground but did not hit his head and he denies loss of consciousness. Furthermore, he denies any injury. He says that he told EMS he did not want to come to the emergency department, "but then my started crying"; patient clarifies when I ask him to do so why she was crying, and he says she felt that he needed to be checked out. Patient says he has 2 things that he feels he would like to have looked at tonight "that have nothing to do with the fall" (per patient). He complains of atraumatic right foot pain that has been going on for approximately 2 weeks. He says it is similar to previous episodes attributed to plantar fasciitis. He says he has brought an orthotic and has been wearing it for approximately 1 week, and it feels like it has been helping to some degree. He also says he has seen his primary care provider for this issue. He also wants me to take a look at a left buttock "blister or boil" (per patient). He says this also has been going on for about 2 weeks. Review of Systems Constitutional: denies: Fever Cardiac: reports: Reviewed and negative Respiratory: reports: Reviewed and negative GI: reports: Reviewed and negative : denies: Dysuria, Frequency Musculoskeletal: reports: Extremity pain (right foot pain). denies: Neck pain, Back pain, Joint pain, Extremity swelling, Joint swelling, Pain with weight bearing Neurologic: denies: Generalized weakness, Focal weakness, Numbness, Confused, Altered mental status, Headache, Head injury, LOC PD PAST MEDICAL HISTORY - Past Medical History Past Medical History: Yes Cardiovascular: Hypertension, High cholesterol Respiratory: Sleep apnea Neuro: None Endocrine/Autoimmune: None GI: None : None HEENT: Chronic hearing loss Psych: None Musculoskeletal: None Derm: None - Past Surgical History Past Surgical History: Yes General: Appendectomy Ortho: Hip replacement - Present Medications Home Medications: Ambulatory Orders Medication Instructions Recorded Confirmed Lisinopril [Zestril] 40 mg PO 09/16/20 Aspirin [Aspirin EC] 81 mg PO DAILY 12/29/20 12/29/20 Diphenoxylate/Atropine [Lomotil] 1 tab BID PRN 12/29/20 12/29/20 Doxazosin Mesylate [Cardura] 2 mg PO 12/29/20 Furosemide [Lasix] 10 mg DAILY 12/29/20 12/29/20 Lovastatin [Altoprev] 20 mg PO 12/29/20 Metoprolol Succinate [Toprol Xl] 25 mg PO DAILY 12/29/20 12/29/20 cephALEXin [Keflex] 500 mg PO Q6H #28 cap 03/05/21 Nitrofurantoin [Macrobid] 100 mg PO BID #10 cap 07/19/22 - Allergies Allergies/Adverse Reactions: Allergies Allergy/AdvReac Type Severity Reaction Status Date / Time No Known Drug Allergies Allergy Verified 07/19/22 18:26 - Social History Does the pt smoke?: No Smoking Status: Never smoker Does the pt drink ETOH?: No Does the pt have substance abuse?: No - Immunizations Immunizations are current?: Yes - POLST Patient has POLST: No PD ED PE NORMAL - Vitals Vital signs reviewed: Yes - General General: Alert and oriented X 3 (answers orientation questions quickly and appropriately/accurately), No acute distress, Well developed/nourished - HEENT HEENT: Atraumatic, PERRL, EOMI - Neck Neck: No bony TTP - Cardiac Cardiac: RRR, No murmur - Respiratory Respiratory: No respiratory distress, Clear bilaterally - Abdomen Abdomen: Soft, Non tender - Back Back: No spinal TTP PD ED PE EXPANDED - Derm Derm: Other ( There is flat, nontender, confluent erythema of the medial aspect of both buttocks, consistent with stage I and stage II decubitus ulcer (stage II is included because there aresmall (3-4 mm diameter) superficial skin breakdown over bilateral ischial tuberosities). ) - Extremities Feet visual: 1 - swelling (minimal swelling, small focus of hyperpigmentation and surrounding blanched skin), tenderness Results - Vitals Vitals: Vital Signs - 24 hr 07/19/22 07/19/22 07/19/22 18:20 18:43 19:15 Temperature 36.6 C Heart Rate 71 68 71 Respiratory 11 L 16 12 Rate Blood Pressure 126/71 108/64 124/54 L O2 Saturation 98 95 97 07/19/22 07/19/22 07/19/22 19:48 21:00 22:45 Temperature 36.8 C Heart Rate 69 74 90 Respiratory 10 L 17 18 Rate Blood Pressure 129/64 137/79 H 152/74 H O2 Saturation 99 98 96 Oxygen O2 Source Room air - Labs Labs: Laboratory Tests 07/19/22 07/19/22 07/19/22 19:05 19:05 19:05 WBC 9.2 RBC 4.16 L Hgb 12.3 L Hct 39.6 L MCV 95.2 H MCH 29.6 MCHC 31.1 L RDW 12.4 Plt Count 124 L MPV 12.2 H Neut # (Auto) 6.6 Lymph # (Auto) 1.4 L Wheeler # (Auto) 0.6 Eos # (Auto) 0.4 Baso # (Auto) 0.1 Absolute Nucleated RBC 0.00 Nucleated RBC % 0.0 Sodium 142 Potassium 3.8 Chloride 105 Carbon Dioxide 28 Anion Gap 9.0 BUN 30 H Creatinine 1.1 Estimated GFR (MDRD) 64 L Glucose 113 H Calcium 9.1 Magnesium 2.2 Total Bilirubin 0.4 AST 17 ALT 13 Alkaline Phosphatase 113 Total Creatine Kinase 91 Total Protein 7.3 Albumin 3.2 Globulin 4.1 Albumin/Globulin Ratio 0.8 L Lipase 28 TSH 2.10 Urine Color Urine Clarity Urine pH Ur Specific [place] Urine Protein Urine Glucose (UA) Urine Ketones Urine Occult Blood Urine Nitrite Urine Bilirubin Urine Urobilinogen Ur Leukocyte Esterase Urine RBC Urine WBC Ur Squamous Epith Cells Urine Bacteria Ur Microscopic Review Urine Culture Comments 07/19/22 20:41 WBC RBC Hgb Hct MCV MCH MCHC RDW Plt Count MPV Neut # (Auto) Lymph # (Auto) Wheeler # (Auto) Eos # (Auto) Baso # (Auto) Absolute Nucleated RBC Nucleated RBC % Sodium Potassium Chloride Carbon Dioxide Anion Gap BUN Creatinine Estimated GFR (MDRD) Glucose Calcium Magnesium Total Bilirubin AST ALT Alkaline Phosphatase Total Creatine Kinase Total Protein Albumin Globulin Albumin/Globulin Ratio Lipase TSH Urine Color DARK YELLOW Urine Clarity CLEAR Urine pH 5.5 Ur Specific [place] 1.025 Urine Protein NEGATIVE Urine Glucose (UA) NEGATIVE Urine Ketones NEGATIVE Urine Occult Blood TRACE-INTA Urine Nitrite NEGATIVE Urine Bilirubin NEGATIVE Urine Urobilinogen 0.2 (NORMAL) Ur Leukocyte Esterase SMALL H Urine RBC 0-5 Urine WBC 11-25 H Ur Squamous Epith Cells RARE Squamous Urine Bacteria Rare Ur Microscopic Review INDICATED Urine Culture Comments INDICATED - Rads (name of study) chest xray Radiology: Prelim report reviewed, EMP read indepedently, See rad report PD Medical Decision Making - ED course Complexity details: reviewed old records, reviewed results, re-evaluated patient, considered differential, d/w patient ED course: There are no concerning findings on tonight's tests including CBC, ER abdominal panel, TSH. Chest x-ray does not evidence any overt, acute disease, but radiologist impression includes mildly enlarged cardiac silhouette, likely small left-sided pleural effusion and mild generalized interstitial prominence. Patient's urinalysis has small leukocytes on macroscopic, 11-25 white blood cells per high-powered field on microscopy. While this is likely an incidental finding regarding patient's presenting chief complaint, the urinalysis is sug gestive of UTI and thus he is given a dose of Macrobid as well as a prescription for a 5-day course of this antibiotic. Results of tests discussed with patient. Return precautions are discussed, and I advised him to contact his primary care provider to arrange for follow- up/reevaluation regarding his symptoms, as well as the findings on his right heel and on his buttocks. Departure - Departure Disposition: 01 Home, Self Care Clinical Impression: Fall Qualifiers: Encounter type: initial encounter Qualified Code(s): W19.XXXA - Unspecified fall, initial encounter Decubital ulcer Qualifiers: Pressure injury location: buttock Pressure injury stage: stage 2 Laterality: unspecified laterality Qualified Code(s): L89.302 - Pressure ulcer of unspecified buttock, stage 2 Condition: Good Instructions: ED Pressure Injury, ED Mechanical Fall, ED UTI Cystitis Male Prescriptions: Nitrofurantoin [Macrobid] 100 mg PO BID #10 cap Comments: There were no concerning findings on tonight's test results. The urinalysis is suggestive of a very mild urinary tract infection; I believe this would be incidental, as it would not explain any of your presenting symptoms. You are given a dose of an antibiotic (nitrofurantoin) in the emergency department and a prescription for 5 days of this antibiotic has been electronically submitted to the [facility] pharmacy in [place]. As we discussed, you should have your right heel rechecked by your primary care provider within 1 to 2 weeks as well as the redness on your buttocks. The redness on your buttocks appears to be the early stages of pressure sores but there is no evidence of infection of the area at this time. Discharge Date/Time: 07/19/22 23:08
[2022-07-19] MEDS ORDERED: SODIUM CHLORIDE 0.9% 1,000 ML IV STA (20:21)
[2022-07-19 20:51] LABS: BILIRUBIN,URINE NEGATIVE (NEGATIVE); GLUCOSE, URINE (UA) NEGATIVE (NEGATIVE); KETONES,URINE (UA) NEGATIVE (NEGATIVE); LEUKOCYTE ESTERASE, URINE SMALL (NEGATIVE); NITRITE,URINE NEGATIVE (NEGATIVE); OCCULT BLOOD,URINE TRACE-INTA (NEGATIVE); PH,URINE 5.5 PH (5.0-7.5); PROTEIN,URINE NEGATIVE (NEGATIVE); UROBILINOGEN,URINE 0.2 (NORMAL) E.U./dL (NORMAL)
[2022-07-19 20:58] LABS: CLARITY,URINE CLEAR (CLEAR)
[2022-07-19 21:09] LABS: BACTERIA,URINE Rare /HPF (None Seen); RBC,URINE 0-5 /HPF (0-5); SQUAMOUS EPITHELIAL CELL,UR RARE Squamous (<= Few)
[2022-07-19] MEDS ORDERED: NITROFURANTOIN MACRO 100 MG CAPSULE PO STA (22:27)
[2022-07-19 22:48] VITALS: BP 152/74
== END 2022-07-19 23:08 | disposition home or self-care (01) ==
LOC: EDUNIT# → ED 18:10
DX: M79.671 Pain in right foot (principal); W01.0XXA Fall on same level from slipping, tripping and stumbling without subsequent striking against object, initial encounter; Y92.9 Unspecified place or not applicable; L89.302 Pressure ulcer of unspecified buttock, stage 2; E78.00 Pure hypercholesterolemia, unspecified; Z79.82 Long term (current) use of aspirin; Z79.899 Other long term (current) drug therapy
CPT/HCPCS: 36415; 71045; 80053; 81001; 82550; 83690; 83735; 84443; 85025; 87086; 99284; A9270; 81003

== ENCOUNTER 2022-08-22 23:58 | Outpatient (CLI) | payer MEDICARE | END 2022-08-22 23:59 | disposition EMS.NT | LOC: EMS 23:58 | DX: Z03.89 Encounter for observation for other suspected diseases and conditions ruled out (principal) ==

== ENCOUNTER 2022-10-25 07:45 | Outpatient (CLI) | payer MEDICARE | END 2022-10-25 07:46 | disposition critical access hospital (66) | LOC: EMS 07:45 | DX: R53.1 Weakness (principal); R39.89 Other symptoms and signs involving the genitourinary system | CPT/HCPCS: A0425; A0427 ==

== ENCOUNTER 2022-10-25 08:17 | Inpatient (IN) | payer MEDICARE ==
[2022-10-25] MEDS ORDERED: SODIUM CHLORIDE 0.9% 1,000 ML IV STA (08:23)
--- NOTE | 2022-10-25 08:27 | ED Physician Documentation ---
PD HPI Fall - Stated complaint Stated Complaint: GEN WEAKNESS - History obtained from History obtained from: Patient, EMS - Additional information Additional information: 82-year-old gentleman with history of hip replacement, subdural hemorrhage requiring craniotomy presents by ambulance for generalized weakness. EMS states he has been weak for about 2 days patient states he just started today. It culminated in him sort of crumpling out of a chair today, he was assisted out of the chair so there was no injury. Patient denies other specific complaints other than urinary continence and frequency. No reported fevers. He has no pain. Normal bowel movements. No nausea. PD PAST MEDICAL HISTORY - Past Medical History Cardiovascular: Hypertension, High cholesterol Respiratory: Sleep apnea Neuro: None Endocrine/Autoimmune: None GI: None : None HEENT: Chronic hearing loss Psych: None Musculoskeletal: None Derm: None - Past Surgical History Past Surgical History: Yes General: Appendectomy Ortho: Hip replacement - Present Medications Home Medications: Ambulatory Orders Medication Instructions Recorded Confirmed Lisinopril [Zestril] 40 mg PO 09/16/20 Aspirin [Aspirin EC] 81 mg PO DAILY 12/29/20 12/29/20 Diphenoxylate/Atropine [Lomotil] 1 tab BID PRN 12/29/20 12/29/20 Doxazosin Mesylate [Cardura] 2 mg PO 12/29/20 Furosemide [Lasix] 10 mg DAILY 12/29/20 12/29/20 Lovastatin [Altoprev] 20 mg PO 12/29/20 Metoprolol Succinate [Toprol Xl] 25 mg PO DAILY 12/29/20 12/29/20 cephALEXin [Keflex] 500 mg PO Q6H #28 cap 03/05/21 Nitrofurantoin [Macrobid] 100 mg PO BID #10 cap 07/19/22 - Allergies Allergies/Adverse Reactions: Allergies Allergy/AdvReac Type Severity Reaction Status Date / Time No Known Drug Allergies Allergy Verified 10/25/22 08:29 - Social History Does the pt smoke?: No Smoking Status: Never smoker Does the pt drink ETOH?: No Does the pt have substance abuse?: No - Immunizations Immunizations are current?: Yes - POLST Patient has POLST: No PD ED PE NORMAL - Vitals Vital signs reviewed: Yes - General General: Alert and oriented X 3, Other (He smells of urine and is mildly disheveled) - HEENT HEENT: PERRL, EOMI, Other (Very dry mucous membranes) - Neck Neck: Supple, no meningeal sign, No bony TTP - Cardiac Cardiac: RRR, No murmur - Respiratory Respiratory: No respiratory distress, Clear bilaterally - Abdomen Abdomen: Non tender - Male Male : Other (Incontinent of urine) - Rectal Rectal: Other (On the inside of both glutei there are shallow stage II pressure ulcers without signs of infection.) - Derm Derm: Normal color, Warm and dry - Extremities Extremities: No edema, No calf tenderness / cord - Neuro Neuro: Alert and oriented X 3, Normal speech, Other (Unable to sit up unassisted but symmetric strength in all 4 extremities.) Results - Vitals Vitals: Vital Signs - 24 hr 10/25/22 10/25/22 10/25/22 08:22 08:25 09:18 Temperature 36.9 C Heart Rate 84 84 Respiratory 16 15 Rate Blood Pressure 124/80 101/50 L O2 Saturation 95 95 96 10/25/22 10/25/22 09:30 10:00 Temperature Heart Rate 80 81 Respiratory 16 16 Rate Blood Pressure 107/57 L 122/64 O2 Saturation 84 L 100 Oxygen O2 Source Nasal cannula Oxygen Flow Rate 2 - EKG (time done) 0843 EKG releavant findings:: EKG personally interpreted by author of this note. Relevant findings are: Rate: Rate (enter#) (84) Rhythm: NSR Jolon: Normal Intervals: Normal RI QRS: Low voltage Ischemia: Non specific changes. No: ST elevation c/w ischemia, ST depression - Labs Labs: Laboratory Tests 10/25/22 10/25/22 10/25/22 08:42 08:42 08:42 WBC 7.4 RBC 3.47 L Hgb 10.5 L Hct 33.3 L MCV 96.0 H MCH 30.3 MCHC 31.5 L RDW 14.6 Plt Count 126 L MPV 11.6 H Neut # (Auto) 5.6 Lymph # (Auto) 1.1 L Heard # (Auto) 0.5 Eos # (Auto) 0.2 Baso # (Auto) 0.0 Absolute Nucleated RBC 0.00 Nucleated RBC % 0.0 Sodium 143 Potassium 5.3 H Chloride 112 H Carbon Dioxide 26 Anion Gap 5.0 L BUN 71 H Creatinine 1.8 H Estimated GFR (MDRD) 36 L Glucose 111 H Lactic Acid 0.7 Calcium 8.6 Total Bilirubin 0.6 AST 17 ALT 16 Alkaline Phosphatase 79 Total Protein 7.2 Albumin 3.2 Globulin 4.0 Albumin/Globulin Ratio 0.8 L Urine Color Urine Clarity Urine pH Ur Specific [place] Urine Protein Urine Glucose (UA) Urine Ketones Urine Occult Blood Urine Nitrite Urine Bilirubin Urine Urobilinogen Ur Leukocyte Esterase Urine RBC Urine WBC Ur Squamous Epith Cells Urine Bacteria Urine Culture Comments 10/25/22 08:58 WBC RBC Hgb Hct MCV MCH MCHC RDW Plt Count MPV Neut # (Auto) Lymph # (Auto) Heard # (Auto) Eos # (Auto) Baso # (Auto) Absolute Nucleated RBC Nucleated RBC % Sodium Potassium Chloride Carbon Dioxide Anion Gap BUN Creatinine Estimated GFR (MDRD) Glucose Lactic Acid Calcium Total Bilirubin AST ALT Alkaline Phosphatase Total Protein Albumin Globulin Albumin/Globulin Ratio Urine Color YELLOW Urine Clarity CLEAR Urine pH 5.0 Ur Specific [place] 1.020 Urine Protein NEGATIVE Urine Glucose (UA) NEGATIVE Urine Ketones NEGATIVE Urine Occult Blood TRACE-INTA Urine Nitrite NEGATIVE Urine Bilirubin NEGATIVE Urine Urobilinogen 0.2 (NORMAL) Ur Leukocyte Esterase NEGATIVE Urine RBC 0-5 Urine WBC 0-3 Ur Squamous Epith Cells RARE Squamous Urine Bacteria Rare Urine Culture Comments NOT INDICATED - Rads (name of study) 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 Relevant Findings:: Final report received, EMP independent interpretation of test Single view chest x-ray demonstrates mild patchy bibasilar atelectasis Relevant Findings:: Final report received, EMP independent interpretation of test PD Medical Decision Making - ED course ED course: 82-year-old gentleman with history of subdural hematoma presents with generalized weakness. He has been incontinent of urine with foul-smelling urine, but his urinalysis is actually normal. Lab work otherwise demonstrates mild anemia a little bit worse than prior indices with macrocytic indices. He has pretty significant PAUL with BUN of 71, baseline on prior labs of around 30 and creatinine of 1.8, his baseline is 1.1. That has caused hyperkalemia and hyperchloremia. He was initially hydrated with 1 L of normal saline, a second liter of crystalloid, this time Plasma-Lyte was given due to its lower chloride content. Decision to admit was made at approximately 9:40 AM, I called the hospitalist but she was in interdisciplinary rounds and will get back to me. Noted at 9:55 AM while at rest he would desaturate into the mid 80s. Really no symptoms to suggest pneumonia but will check a chest x-ray and he is placed on supplemental oxygen. Departure - Departure Disposition: ED Place in Observation Clinical Impression: PAUL (acute kidney injury), Weak, Hyperchloremia, Hyperkalemia Condition: Stable
[2022-10-25 09:01] LABS: ALBUMIN 3.2 g/dL (3.2-5.5); ALBUMIN/GLOBULIN RATIO 0.8 (1.0-2.2); BILIRUBIN,TOTAL 0.6 mg/dL (0.2-1.0); CALCIUM 8.6 mg/dL (8.5-10.3); CREATININE 1.8 mg/dL (0.6-1.2); POTASSIUM 5.3 mmol/L (3.5-5.0); TOTAL PROTEIN 7.2 g/dL (6.7-8.2)
[2022-10-25 09:04] LABS: BASOPHILS % (AUTO) 0.4 %; EOSINOPHILS # (AUTO) 0.2 10^3/uL (0.0-0.7); EOSINOPHILS % (AUTO) 2.4 %; HCT - HEMATOCRIT 33.3 % (42.0-52.0); HGB - HEMOGLOBIN 10.5 g/dL (14.0-18.0); LYMPHOCYTES # (AUTO) 1.1 10^3/uL (1.5-3.5); LYMPHOCYTES % (AUTO) 14.3 %; MEAN CORPUSCULAR HEMOGLOBIN 30.3 pg (27.0-31.0); MEAN CORPUSCULAR HGB CONC 31.5 g/dL (32.0-36.0); MEAN PLATELET VOLUME 11.6 fL (7.4-11.4); MONOCYTES # (AUTO) 0.5 10^3/uL (0.0-1.0); NEUTROPHILS # (AUTO) 5.6 10^3/uL (1.5-6.6); NEUTROPHILS % (AUTO) 75.6 %; PLT - PLATELET COUNT 126 10^3/uL (130-450); RED BLOOD COUNT 3.47 10^6/uL (4.70-6.10); RED CELL DISTRIBUTION WIDTH 14.6 % (12.0-15.0); WHITE BLOOD COUNT 7.4 x10^3/uL (4.8-10.8)
[2022-10-25 09:08] LABS: BILIRUBIN,URINE NEGATIVE (NEGATIVE); GLUCOSE, URINE (UA) NEGATIVE (NEGATIVE); KETONES,URINE (UA) NEGATIVE (NEGATIVE); LEUKOCYTE ESTERASE, URINE NEGATIVE (NEGATIVE); NITRITE,URINE NEGATIVE (NEGATIVE); OCCULT BLOOD,URINE TRACE-INTA (NEGATIVE); PROTEIN,URINE NEGATIVE (NEGATIVE); UROBILINOGEN,URINE 0.2 (NORMAL) E.U./dL (NORMAL)
[2022-10-25] MEDS ORDERED: ELECTROLYTE-A SOLUTION 1,000 ML IV ONE (09:08)
[2022-10-25 09:10] LABS: CLARITY,URINE CLEAR (CLEAR)
[2022-10-25 09:19] LABS: RBC,URINE 0-5 /HPF (0-5); SQUAMOUS EPITHELIAL CELL,UR RARE Squamous (<= Few); WBC,URINE 0-3 /HPF (0-3)
[2022-10-25 09:20] LABS: BACTERIA,URINE Rare /HPF (None Seen)
--- NOTE | 2022-10-25 09:51 | CT Report ---
PROCEDURE: HEAD WO INDICATIONS: weak, h/o ich TECHNIQUE: Noncontrast 4.5 mm thick angled axial sections acquired from the foramen magnum to the vertex. For r adiation dose reduction, the following was used: automated exposure control, adjustment of mA and/or kV according to patient size. COMPARISON: None. FINDINGS: Image quality: Excellent. CSF spaces: Basal cisterns are patent. No extra-axial fluid collections. Previous subdural hematoma on the right no longer present. Ventricles are normal in size and shape. Brain: No midline shift. 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 No additional intracranial masses or hemorrhage. Lala-white matter interface is nor mal. Age-related volume loss and mild small vessel ischemic change. Skull and face: Interval right temporal craniotomy. Calvarium and visualized facial bones are intact , without suspicious lesions. Sinuses: Visualized sinuses and mastoids are clear. IMPRESSION: 1. No acute intracranial process. 2. Known intracranial lipoma. 3. Interval right temporal craniotomy. Reviewed by: Larry South MD on 10/25/2022 9:50 AM PDT Approved by: Larry South MD on 10/25/2022 9:50 AM PDT Station ID: [id number]
--- NOTE | 2022-10-25 10:10 | XRAY Report ---
PROCEDURE: Chest 1 View X-Ray INDICATIONS: Hypoxemia TECHNIQUE: One view of the chest was acquired. COMPARISON: 07/19/2022. FINDINGS: Surgical changes and devices: None. Lungs and pleura: No pleural effusions or pneumothorax. Mild patchy bibasilar atelectasis. Mediastinum: Mediastinal contours appear normal. Heart size is normal. Bones and chest wall: No suspicious bony lesions. Overlying soft tissues appear unremarkable. IMPRESSION: Mild patchy bibasilar atelectasis. Reviewed by: Larry South MD on 10/25/2022 10:09 AM PDT Approved by: Larry South MD on 10/25/2022 10:09 AM PDT Station ID: [id number]
[2022-10-25] MEDS ORDERED: ONDANSETRON 4 MG/2 ML VIAL IVP PRN (12:15)
[2022-10-25] MEDS ORDERED: ACETAMINOPHEN 325 MG TABLET PO PRN (12:15)
[2022-10-25] MEDS ORDERED: oxyCODONE 5 MG TABLET PO PRN (12:15)
[2022-10-25] MEDS ORDERED: SODIUM CHLORIDE FLUSH 0.9% 10 ML SYRINGE IVP PRN (12:15)
[2022-10-25] MEDS: SODIUM CHLORIDE 0.9% 1,000 ML IV SCH (13:24)
--- NOTE | 2022-10-25 13:34 | PHARMACY PROGRESS NOTE ---
- Best Possible Medication History Admit Date and Time: 10/25/22 1215 Processed by: Pharmacy Medication History completed: Yes Patient Interview: Completed Secondary Source(s): Spouse/Significant other, Pharmacy records (SPOKE TO MIKEY RICHARDSON) As the person ultimately responsible for medication therapy, providers are able to order a medication from an existing home medication list in [facility] via the "Reconcile Routine" prior to Confirmation of that medication by support service tech. Such practice is discouraged except when the physician, in their clinical judgment, deems that a medical need exists for a medication without regard to previous use.
--- NOTE | 2022-10-25 14:14 | HISTORY & PHYSICAL EXAMINATION ---
Chief Complaint - Chief Complaint Chief Complaint: Generalized weakness x2 days History of Present Illness - Admitted From Admitted From:: Emergency room - History Obtained From Records Reviewed: Yes History obtained from: Patient - History of Present Illness HPI Comment/Other: Is an 82-year-old gentleman with a history of hip replacement in the past history of subdural bleed requiring craniotomy in the past who presented with 2 days of generalized weakness. He had trouble getting in and out of his chair at home. He sustained no injury. He denies any fevers chills. Denies any alteration in bowel movements or urinary symptoms. Denies any cough. He is afebrile. He is on lisinopril along with Lasix.His labs are significant for a new PAUL with potassium of 5.3 BUN of 71 creatinine of 1.8 calculated GFR of 36 lactic acid was normal at 0.7. LFTs are normal. White count is 7.4 hemoglobin is 10.1 which is a bit diminished from previous.Urine analysis shows no suggestion of urinary tract infection. History - Past Medical History Cardiovascular: reports: Hypertension, High cholesterol Respiratory: reports: Sleep apnea Neuro: reports: None Endocrine/Autoimmune: reports: None GI: reports: None : reports: None HEENT: reports: Chronic hearing loss Psych: reports: None Musculoskeletal: reports: None Derm: reports: None MRSA Hx?: No Other Past Medical History: traumatic subdural hemorrhage - Past Surgical History General: reports: Appendectomy Ortho: reports: Hip replacement Neuro: reports: Craniotomy - POLST Patient has POLST: No Meds/Allgy - Home Medications Home Medications: Ambulatory Orders Medication Instructions Recorded Confirmed Lisinopril [Zestril] 40 mg PO DAILY 09/16/20 10/25/22 Furosemide [Lasix] 10 mg DAILY 12/29/20 10/25/22 Lovastatin [Altoprev] 20 mg PO DAILY 12/29/20 10/25/22 Metoprolol Succinate [Toprol Xl] 25 mg PO DAILY 12/29/20 10/25/22 Alfuzosin HCl [Alfuzosin HCl ER] 1 tab PO DAILY 10/25/22 10/25/22 Cholecalciferol (Vitamin D3) 1 cap PO DAILY 10/25/22 10/25/22 [Vitamin D3] Finasteride [Proscar] 1 tab PO DAILY 10/25/22 10/25/22 Inulin/Cholecalciferol (D3) [Fiber 1 tab PO DAILY 10/25/22 10/25/22 Gummies-Vitamin D3] Psyllium [Metamucil] 1 packet PO DAILY 10/25/22 10/25/22 - Allergies Allergies/Adverse Reactions: Allergies Allergy/AdvReac Type Severity Reaction Status Date / Time No Known Drug Allergies Allergy Verified 10/25/22 08:29 Review of Systems - Other Findings Other Findings: All systems are reviewed and are negative except for as in HPI. Exam - Vital Signs Reviewed Vital Signs: Yes Vital Signs: Vital Signs x48h Temp Pulse Pulse Resp BP BP Pulse Ox 10/25/22 13:00 36.4 C L 78 18 102/51 L 94 10/25/22 12:43 85 10/25/22 12:28 81 16 119/66 99 10/25/22 10:28 77 16 115/90 H 100 10/25/22 10:00 81 16 122/64 100 10/25/22 09:30 80 16 107/57 L 84 L 10/25/22 09:18 84 15 101/50 L 96 10/25/22 08:25 36.9 C 84 16 124/80 95 10/25/22 08:22 95 O2 Flow Rate 10/25/22 13:00 10/25/22 12:43 10/25/22 12:28 2 10/25/22 10:28 10/25/22 10:00 10/25/22 09:30 10/25/22 09:18 10/25/22 08:25 10/25/22 08:22 - Physical Exam General Appearance: positive: No acute distress, Alert Eyes Bilateral: positive: Normal inspection Neck: positive: Nml inspection Respiratory: positive: Breath sounds nml Cardiovascular: positive: Regular rate & rhythm Abdomen: positive: Non-tender, No distention Skin: positive: No rash Extremities: positive: Non-tender Neurologic/Psychiatric: positive: Oriented x3 Conclusion/Plan - Problem List (1) Hyperkalemia Conclusion/Plan: Patient is on lisinopril will hold this and possibly related to PAUL. We will continue to monitor and give IV fluid hydration. (2) PAUL (acute kidney injury) Conclusion/Plan: Unclear etiology at this point. We will hold patient's Lasix and lisinopril. Check CT of abdomen pelvis without contrast -Avoid nephrotoxic agents (3) Generalized weakness Conclusion/Plan: Suspected secondary to patient's PAUL with possible dehydration and will evaluate for other etiology. Progress activity as tolerated in the hospital. (4) Hypertension Conclusion/Plan: We will hold his antihypertensive meds for now and monitor. Holding because of hyperkalemia and PAUL. (5) Anemia Conclusion/Plan: Patient currently with acute on chronic anemia. Will check iron profile, vitamin B12 and folate. - Lab Results Fish Bones: 10/25/22 08:42 10/25/22 08:42 - Diagnostic Imaging Results Diagnostic Imaging Results: positive: Prelim report reviewed
[2022-10-25] MEDS ORDERED: HALOPERIDOL 5 MG/ML VIAL IVP ONE (15:24)
[2022-10-25] MEDS ORDERED: HALOPERIDOL 5 MG/ML VIAL IVP PRN (17:50)
[2022-10-25] MEDS: SODIUM CHLORIDE FLUSH 0.9% 10 ML SYRINGE IVP SCH (18:56)
[2022-10-26] MEDS: SODIUM CHLORIDE 0.9% 1,000 ML IV SCH ×3 (00:09→18:34)
[2022-10-26] MEDS: SODIUM CHLORIDE FLUSH 0.9% 10 ML SYRINGE IVP SCH ×3 (01:00→17:06)
[2022-10-26 06:02] LABS: BUN - BLOOD UREA NITROGEN 46 mg/dL (6-20); CALCIUM 8.1 mg/dL (8.5-10.3); CARBON DIOXIDE - CO2 25 mmol/L (21-32); CHLORIDE 115 mmol/L (101-111); CREATININE 1.4 mg/dL (0.6-1.2); GFR - MDRD 49 (>89); GLUCOSE 94 mg/dL (70-100); IONIZED CALCIUM IF INDICATED YES; POTASSIUM 4.4 mmol/L (3.5-5.0); SODIUM 143 mmol/L (135-145)
[2022-10-26 06:14] LABS: % IRON SATURATION 40 % (20-50); IRON 90 ug/dL (45-182); TOTAL IRON BINDING CAPACITY 223 ug/dL (250-450); TRANSFERRIN 159 mg/dL (180-329)
[2022-10-26 06:15] LABS: CALCIUM, IONIZED 1.14 mmol/L (1.15-1.33); VBG PH 7.369 (7.31-7.41)
[2022-10-26 06:29] LABS: FERRITIN 96.3 ng/mL (23.9-336.2)
[2022-10-26 06:33] LABS: FOLATE 17.48 ng/mL (5.90 - >24.8)
[2022-10-26] MEDS: MULTIVITAMIN W/MINERALS TABLET PO SCH (10:20)
[2022-10-26] MEDS ORDERED: LORazepam 1 MG TABLET PO PRN (10:25)
--- NOTE | 2022-10-26 14:32 | CT Report ---
PROCEDURE: ABDOMEN/PELVIS W INDICATIONS: eri CONTRAST: 100ml Omipaque 300 TECHNIQUE: After the administration of intravenous contrast, 5 mm thick sections acquired from the diaphragms to the symphysis. 5 mm thick coronal and sagittal reformats were acquired. For radiation dose reducti on, the following was used: automated exposure control, adjustment of mA and/or kV according to jeff ent size. COMPARISON: None FINDINGS: Image quality: Excellent. Lung bases and heart: Small pleural effusions. Liver: No solid mass. Gallbladder and biliary tree: No radiopaque stones or wall thickening. No biliary dilation. Spleen: No splenomegaly. Coarse calcifications. Pancreas: No pancreatic ductal dilation. Adrenals: No adrenal nodule. Kidneys and ureters: No hydronephrosis. No renal cystic lesion which requires follow up. No solid mas s. Bowel and peritoneum: No bowel distension. No pathologic free fluid. Diverticulosis without evidence of diverticulitis. Large colonic stool load. Lymph nodes: No central or retroperitoneal adenopathy. Vessels: No infrarenal aortic aneurysm. PELVIS Obscured by metallic artifact. No large mass. Trace fat containing right inguinal hernia. Bones: No aggressive osseous abnormality. Bilateral hip arthroplasties. Other: No significant ventral or inguinal hernia. IMPRESSION: No hydronephrosis or CT evidence of pyonephritis. Reviewed by: Steven Vincent on 10/26/2022 2:31 PM PDT Approved by: Steven Vincent on 10/26/2022 2:31 PM PDT Station ID: [id number]
--- NOTE | 2022-10-26 16:28 | PROVIDER PROGRESS NOTE ---
Assessment/Plan - Problem List (1) Hyperkalemia Assessment/Plan: Conclusion/Plan: Patient is on lisinopril will hold this and possibly related to PAUL. We will continue to monitor and give IV fluid hydration. -October 26, 2022-hyperkalemia has resolved (2) PAUL (acute kidney injury) Conclusion/Plan: Unclear etiology at this point. We will hold patient's Lasix and lisinopril. Check CT of abdomen pelvis without contrast -Avoid nephrotoxic agents October 26, 2022-GFR has improved and will continue with IV fluid hydration. CT of abdomen pelvis with contrast did not reveal any abnormalities (3) Generalized weakness Conclusion/Plan: Suspected secondary to patient's PAUL with possible dehydration and will evaluate for other etiology. Progress activity as tolerated in the hospital. (4) Hypertension Conclusion/Plan: We will hold his antihypertensive meds for now and monitor. Holding because of hyperkalemia and PAUL. (5) Anemia Conclusion/Plan: Patient currently with acute on chronic anemia. Will check iron profile, vitamin B12 and folate. -October 26, 2022-B12 folate and iron studies are normal. Anemia may be secondary to PAUL - Current Meds Current Meds: Current Medications Generic Name Dose Route Start Last Admin Trade Name Freq PRN Reason Stop Dose Admin Acetaminophen 650 mg 10/25/22 12:15 10/25/22 13:22 Acetaminophen 325 Mg Tablet PO 650 mg Q4HR PRN Administration Pain 1 to 4, or Fever Sodium Chloride 1,000 mls @ 100 mls/hr 10/25/22 13:00 10/26/22 08:16 Normal Saline 0.9% IV 100 mls/hr .Q10H ISAURA Administration Multivitamins/Minerals 1 tab 10/26/22 10:00 10/26/22 10:20 Multivitamin W/Minerals Tablet PO 1 tab DAILYWM ISAURA Administration Sodium Chloride 10 ml 10/25/22 12:15 10/25/22 13:24 Sodium Chloride Flush 0.9% 10 Ml Syringe IVP 10 ml PRN PRN Administration NEEDED PER PROVIDER ORDERS Sodium Chloride 10 ml 10/25/22 17:00 10/26/22 08:16 Sodium Chloride Flush 0.9% 10 Ml Syringe IVP 10 ml 0100,0900,1700 ISAURA Administration - Lab Result Fish Bone Diagrams: 10/26/22 05:40 10/26/22 05:40 - Additional Planning My Orders: My Active Orders 10/25/22 Dinner Cardiac Diet [DIET] 10/25/22 17:00 Sodium Chloride Flush 0.9% [Normal Saline Flush 0.9%] 10 ml IVP 0100,0900,1700 10/25/22 17:50 Haloperidol Inj [Haldol Inj] 5 mg IVP Q6H PRN 10/26/22 10:00 Multivitamin W/Minerals [Theragran M] 1 tab PO DAILYWM 10/26/22 10:25 LORazepam [Ativan] 1 mg PO Q4H PRN 10/27/22 05:00 CBC - COMP BLD CT W/AUTO DIFF [HEME] DAILYLAB CMP [COMPREHENSIVE METABOLIC PANEL] [CHEM] DAILYLAB 10/28/22 05:00 CBC - COMP BLD CT W/AUTO DIFF [HEME] DAILYLAB CMP [COMPREHENSIVE METABOLIC PANEL] [CHEM] DAILYLAB 10/29/22 05:00 CBC - COMP BLD CT W/AUTO DIFF [HEME] DAILYLAB CMP [COMPREHENSIVE METABOLIC PANEL] [CHEM] DAILYLAB 10/30/22 05:00 CBC - COMP BLD CT W/AUTO DIFF [HEME] DAILYLAB CMP [COMPREHENSIVE METABOLIC PANEL] [CHEM] DAILYLAB 10/31/22 05:00 CBC - COMP BLD CT W/AUTO DIFF [HEME] DAILYLAB CMP [COMPREHENSIVE METABOLIC PANEL] [CHEM] DAILYLAB 11/01/22 05:00 CBC - COMP BLD CT W/AUTO DIFF [HEME] DAILYLAB CMP [COMPREHENSIVE METABOLIC PANEL] [CHEM] DAILYLAB Subjective - Subjective Patient Reports: Feeling Better Objective Vital Signs: Vital Signs - 24 hr 10/25/22 10/26/22 10/26/22 22:17 04:55 08:07 Temperature 36.4 C L 36.5 C 36.4 C L Heart Rate [ 78 77 72 Brachial] Respiratory 18 16 20 Rate Blood Pressure 109/71 118/54 L 124/57 L [Right Brachial artery] O2 Saturation 96 98 96 10/26/22 13:55 Temperature 36.4 C L Heart Rate [ 70 Brachial] Respiratory 18 Rate Blood Pressure 109/58 L [Right Brachial artery] O2 Saturation 99 Oxygen O2 Source Room air Oxygen Flow Rate 2 I&O (Last 24 Hrs): Intake and Output Totals x24h 06/11/1010/25/22 10/26/22 23:59 23:59 23:59 Intake Total 3490 1251.667 Balance 3490 1251.667 General: Alert, Oriented x3, Cooperative HEENT: Atraumatic Neck: Supple Neuro: Alert Cardiovascular: Regular rate, Normal S1, Normal S2 Respiratory: Breath sounds nml Abdomen: Normal bowel sounds, Soft Skin: No rashes - Results Results: Laboratory Results WBC 7.4 x10^3/uL (4.8-10.8) 10/25/22 08:42 RBC 3.47 10^6/uL (4.70-6.10) L 10/25/22 08:42 Hgb 9.5 g/dL (14.0-18.0) L 10/26/22 05:40 Hct 33.3 % (42.0-52.0) L 10/25/22 08:42 MCV 96.0 fL (80.0-94.0) H 10/25/22 08:42 MCH 30.3 pg (27.0-31.0) 10/25/22 08:42 MCHC 31.5 g/dL (32.0-36.0) L 10/25/22 08:42 RDW 14.6 % (12.0-15.0) 10/25/22 08:42 Plt Count 126 10^3/uL (130-450) L 10/25/22 08:42 MPV 11.6 fL (7.4-11.4) H 10/25/22 08:42 Neut # (Auto) 5.6 10^3/uL (1.5-6.6) 10/25/22 08:42 Lymph # (Auto) 1.1 10^3/uL (1.5-3.5) L 10/25/22 08:42 [place] # (Auto) 0.5 10^3/uL (0.0-1.0) 10/25/22 08:42 Eos # (Auto) 0.2 10^3/uL (0.0-0.7) 10/25/22 08:42 Baso # (Auto) 0.0 10^3/uL (0.0-0.1) 10/25/22 08:42 Absolute Nucleated RBC 0.00 x10^3/uL 10/25/22 08:42 Nucleated RBC % 0.0 /100WBC 10/25/22 08:42 VBG pH 7.369 (7.31-7.41) 10/26/22 05:40 Ionized Calcium 1.14 mmol/L (1.15-1.33) L 10/26/22 05:40 Sodium 143 mmol/L (135-145) 10/26/22 05:40 Potassium 4.4 mmol/L (3.5-5.0) 10/26/22 05:40 Chloride 115 mmol/L (101-111) H 10/26/22 05:40 Carbon Dioxide 25 mmol/L (21-32) 10/26/22 05:40 Anion Gap 3.0 (6-13) L 10/26/22 05:40 BUN 46 mg/dL (6-20) H 10/26/22 05:40 Creatinine 1.4 mg/dL (0.6-1.2) H 10/26/22 05:40 Estimated GFR (MDRD) 49 (>89) L 10/26/22 05:40 Glucose 94 mg/dL (70-100) 10/26/22 05:40 Lactic Acid 0.7 mmol/L (0.5-2.2) 10/25/22 08:42 Calcium 8.1 mg/dL (8.5-10.3) L 10/26/22 05:40 Ionized Calcium YES 10/26/22 05:40 Iron 90 ug/dL (45-182) 10/26/22 05:40 TIBC 223 ug/dL (250-450) L 10/26/22 05:40 % Saturation 40 % (20-50) 10/26/22 05:40 Transferrin 159 mg/dL (180-329) L 10/26/22 05:40 Ferritin 96.3 ng/mL (23.9-336.2) 10/26/22 05:40 Total Bilirubin 0.6 mg/dL (0.2-1.0) 10/25/22 08:42 AST 17 IU/L (10-42) 10/25/22 08:42 ALT 16 IU/L (10-60) 10/25/22 08:42 Alkaline Phosphatase 79 IU/L (42-121) 10/25/22 08:42 Troponin I High Sens 7.0 ng/L (2.3-19.7) 10/26/22 05:40 Total Protein 7.2 g/dL (6.7-8.2) 10/25/22 08:42 Albumin 3.2 g/dL (3.2-5.5) 10/25/22 08:42 Globulin 4.0 g/dL (2.1-4.2) 10/25/22 08:42 Albumin/Globulin Ratio 0.8 (1.0-2.2) L 10/25/22 08:42 Vitamin B12 431 pg/mL (180-914) 10/26/22 05:40 Folate 17.48 ng/mL (5.90 - >24.8) 10/26/22 05:40 Urine Color YELLOW 10/25/22 08:58 Urine Clarity CLEAR (CLEAR) 10/25/22 08:58 Urine pH 5.0 PH (5.0-7.5) 10/25/22 08:58 Ur Specific [place] 1.020 (1.002-1.030) 10/25/22 08:58 Urine Protein NEGATIVE mg/dL (NEGATIVE) 10/25/22 08:58 Urine Glucose (UA) NEGATIVE mg/dL (NEGATIVE) 10/25/22 08:58 Urine Ketones NEGATIVE mg/dL (NEGATIVE) 10/25/22 08:58 Urine Occult Blood TRACE-INTA (NEGATIVE) 10/25/22 08:58 Urine Nitrite NEGATIVE (NEGATIVE) 10/25/22 08:58 Urine Bilirubin NEGATIVE (NEGATIVE) 10/25/22 08:58 Urine Urobilinogen 0.2 (NORMAL) E.U./dL (NORMAL) 10/25/22 08:58 Ur Leukocyte Esterase NEGATIVE (NEGATIVE) 10/25/22 08:58 Urine RBC 0-5 /HPF (0-5) 10/25/22 08:58 Urine WBC 0-3 /HPF (0-3) 10/25/22 08:58 Ur Squamous Epith Cells RARE Squamous (<= Few) 10/25/22 08:58 Urine Bacteria Rare /HPF (None Seen) 10/25/22 08:58 Urine Culture Comments NOT INDICATED 10/25/22 08:58 - Procedures Procedures: Procedures EXTIRPATION OF MATTER FROM LOWER ESOPHAGUS, ENDO (09/17/20)
[2022-10-27] MEDS: SODIUM CHLORIDE FLUSH 0.9% 10 ML SYRINGE IVP SCH ×3 (04:50→16:35)
[2022-10-27] MEDS: SODIUM CHLORIDE 0.9% 1,000 ML IV SCH ×2 (04:50→19:22)
[2022-10-27] MEDS: MULTIVITAMIN W/MINERALS TABLET PO SCH (07:44)
[2022-10-27 09:58] LABS: BASOPHILS % (AUTO) 0.5 %; EOSINOPHILS # (AUTO) 0.3 10^3/uL (0.0-0.7); EOSINOPHILS % (AUTO) 3.4 %; HCT - HEMATOCRIT 31.4 % (42.0-52.0); HGB - HEMOGLOBIN 9.9 g/dL (14.0-18.0); LYMPHOCYTES # (AUTO) 1.4 10^3/uL (1.5-3.5); LYMPHOCYTES % (AUTO) 16.1 %; MEAN CORPUSCULAR HGB CONC 31.5 g/dL (32.0-36.0); MEAN CORPUSCULAR VOLUME 95.2 fL (80.0-94.0); MEAN PLATELET VOLUME 11.8 fL (7.4-11.4); MONOCYTES # (AUTO) 0.5 10^3/uL (0.0-1.0); MONOCYTES % (AUTO) 6.4 %; NEUTROPHILS # (AUTO) 6.2 10^3/uL (1.5-6.6); NEUTROPHILS % (AUTO) 73.4 %; PLT - PLATELET COUNT 119 10^3/uL (130-450); RED CELL DISTRIBUTION WIDTH 14.2 % (12.0-15.0); WHITE BLOOD COUNT 8.5 x10^3/uL (4.8-10.8)
[2022-10-27 10:08] LABS: ALBUMIN 2.7 g/dL (3.2-5.5); ALBUMIN/GLOBULIN RATIO 0.8 (1.0-2.2); BILIRUBIN,TOTAL 0.5 mg/dL (0.2-1.0); CALCIUM 7.9 mg/dL (8.5-10.3); CREATININE 1.1 mg/dL (0.6-1.2); POTASSIUM 4.3 mmol/L (3.5-5.0); TOTAL PROTEIN 6.2 g/dL (6.7-8.2)
--- NOTE | 2022-10-27 16:01 | PROVIDER PROGRESS NOTE ---
Assessment/Plan - Problem List (1) Hyperkalemia Assessment/Plan: Assessment/Plan: Conclusion/Plan: Patient is on lisinopril will hold this and possibly related to PAUL. We will continue to monitor and give IV fluid hydration. -October 26, 2022-hyperkalemia has resolved (2) PAUL (acute kidney injury) Conclusion/Plan: Unclear etiology at this point. We will hold patient's Lasix and lisinopril. Check CT of abdomen pelvis without contrast -Avoid nephrotoxic agents October 26, 2022-GFR has improved and will continue with IV fluid hydration. CT of abdomen pelvis with contrast did not reveal any abnormalities (3) Generalized weakness Conclusion/Plan: Suspected secondary to patient's PAUL with possible dehydration and will evaluate for other etiology. Progress activity as tolerated in the hospital. (4) Hypertension Conclusion/Plan: We will hold his antihypertensive meds for now and monitor. Holding because of hyperkalemia and PAUL. (5) Anemia Conclusion/Plan: Patient currently with acute on chronic anemia. Will check iron profile, vish min B12 and folate. -October 26, 2022-B12 folate and iron studies are normal. Anemia may be secondary to PAUL - Current Meds Current Meds: Current Medications Generic Name Dose Route Start Last Admin Trade Name Freq PRN Reason Stop Dose Admin Acetaminophen 650 mg 10/25/22 12:15 10/25/22 13:22 Acetaminophen 325 Mg Tablet PO 650 mg Q4HR PRN Administration Pain 1 to 4, or Fever Sodium Chloride 1,000 mls @ 100 mls/hr 10/25/22 13:00 10/27/22 04:50 Normal Saline 0.9% IV 100 mls/hr .Q10H ISAURA Administration Multivitamins/Minerals 1 tab 10/26/22 10:00 10/27/22 07:44 Multivitamin W/Minerals Tablet PO 1 tab DAILYWM ISAURA Administration Sodium Chloride 10 ml 10/25/22 12:15 10/25/22 13:24 Sodium Chloride Flush 0.9% 10 Ml Syringe IVP 10 ml PRN PRN Administration NEEDED PER PROVIDER ORDERS Sodium Chloride 10 ml 10/25/22 17:00 10/27/22 07:44 Sodium Chloride Flush 0.9% 10 Ml Syringe IVP 10 ml 0100,0900,1700 ISAURA Administration - Lab Result Fish Bone Diagrams: 10/27/22 09:47 10/27/22 09:47 - Additional Planning My Orders: My Active Orders 10/27/22 Home Health Referral [CONS] Routine 10/27/22 15:22 Wound Care - MAC [RC] .ONCE 10/28/22 05:00 CBC - COMP BLD CT W/AUTO DIFF [HEME] DAILYLAB CMP [COMPREHENSIVE METABOLIC PANEL] [CHEM] DAILYLAB 10/29/22 05:00 CBC - COMP BLD CT W/AUTO DIFF [HEME] DAILYLAB CMP [COMPREHENSIVE METABOLIC PANEL] [CHEM] DAILYLAB 10/30/22 05:00 CBC - COMP BLD CT W/AUTO DIFF [HEME] DAILYLAB CMP [COMPREHENSIVE METABOLIC PANEL] [CHEM] DAILYLAB 10/31/22 05:00 CBC - COMP BLD CT W/AUTO DIFF [HEME] DAILYLAB CMP [COMPREHENSIVE METABOLIC PANEL] [CHEM] DAILYLAB 11/01/22 05:00 CBC - COMP BLD CT W/AUTO DIFF [HEME] DAILYLAB CMP [COMPREHENSIVE METABOLIC PANEL] [CHEM] DAILYLAB Objective Vital Signs: Vital Signs - 24 hr 10/26/22 10/27/22 10/27/22 20:21 00:00 05:11 Temperature 36.8 C 36.9 C 36.7 C Heart Rate [ 76 71 70 Brachial] Respiratory 16 20 18 Rate Blood Pressure 112/48 L 135/64 H 127/65 [Right Brachial artery] O2 Saturation 98 98 99 10/27/22 10/27/22 08:00 13:39 Temperature 36.7 C 36.4 C L Heart Rate [ 72 71 Brachial] Respiratory 16 18 Rate Blood Pressure 118/63 125/57 L [Right Brachial artery] O2 Saturation 100 96 Oxygen O2 Source Room air Oxygen Flow Rate 2 I&O (Last 24 Hrs): Intake and Output Totals x24h 10/25/22 10/26/22 10/27/22 23:59 23:59 23:59 Intake Total 3490 2791.667 1650 Balance 3490 2791.667 1650 - Results Results: Laboratory Results WBC 8.5 x10^3/uL (4.8-10.8) 10/27/22 09:47 RBC 3.30 10^6/uL (4.70-6.10) L 10/27/22 09:47 Hgb 9.9 g/dL (14.0-18.0) L 10/27/22 09:47 Hct 31.4 % (42.0-52.0) L 10/27/22 09:47 MCV 95.2 fL (80.0-94.0) H 10/27/22 09:47 MCH 30.0 pg (27.0-31.0) 10/27/22 09:47 MCHC 31.5 g/dL (32.0-36.0) L 10/27/22 09:47 RDW 14.2 % (12.0-15.0) 10/27/22 09:47 Plt Count 119 10^3/uL (130-450) L 10/27/22 09:47 MPV 11.8 fL (7.4-11.4) H 10/27/22 09:47 Neut # (Auto) 6.2 10^3/uL (1.5-6.6) 10/27/22 09:47 Lymph # (Auto) 1.4 10^3/uL (1.5-3.5) L 10/27/22 09:47 [place] # (Auto) 0.5 10^3/uL (0.0-1.0) 10/27/22 09:47 Eos # (Auto) 0.3 10^3/uL (0.0-0.7) 10/27/22 09:47 Baso # (Auto) 0.0 10^3/uL (0.0-0.1) 10/27/22 09:47 Absolute Nucleated RBC 0.00 x10^3/uL 10/27/22 09:47 Nucleated RBC % 0.0 /100WBC 10/27/22 09:47 VBG pH 7.369 (7.31-7.41) 10/26/22 05:40 Ionized Calcium 1.14 mmol/L (1.15-1.33) L 10/26/22 05:40 Sodium 142 mmol/L (135-145) 10/27/22 09:47 Potassium 4.3 mmol/L (3.5-5.0) 10/27/22 09:47 Chloride 113 mmol/L (101-111) H 10/27/22 09:47 Carbon Dioxide 24 mmol/L (21-32) 10/27/22 09:47 Anion Gap 5.0 (6-13) L 10/27/22 09:47 BUN 28 mg/dL (6-20) H 10/27/22 09:47 Creatinine 1.1 mg/dL (0.6-1.2) 10/27/22 09:47 Estimated GFR (MDRD) 64 (>89) L 10/27/22 09:47 Glucose 126 mg/dL (70-100) H 10/27/22 09:47 Lactic Acid 0.7 mmol/L (0.5-2.2) 10/25/22 08:42 Calcium 7.9 mg/dL (8.5-10.3) L 10/27/22 09:47 Ionized Calcium YES 10/26/22 05:40 Iron 90 ug/dL (45-182) 10/26/22 05:40 TIBC 223 ug/dL (250-450) L 10/26/22 05:40 % Saturation 40 % (20-50) 10/26/22 05:40 Transferrin 159 mg/dL (180-329) L 10/26/22 05:40 Ferritin 96.3 ng/mL (23.9-336.2) 10/26/22 05:40 Total Bilirubin 0.5 mg/dL (0.2-1.0) 10/27/22 09:47 AST 18 IU/L (10-42) 10/27/22 09:47 ALT 14 IU/L (10-60) 10/27/22 09:47 Alkaline Phosphatase 71 IU/L (42-121) 10/27/22 09:47 Troponin I High Sens 7.0 ng/L (2.3-19.7) 10/26/22 05:40 Total Protein 6.2 g/dL (6.7-8.2) L 10/27/22 09:47 Albumin 2.7 g/dL (3.2-5.5) L 10/27/22 09:47 Globulin 3.5 g/dL (2.1-4.2) 10/27/22 09:47 Albumin/Globulin Ratio 0.8 (1.0-2.2) L 10/27/22 09:47 Vitamin B12 431 pg/mL (180-914) 10/26/22 05:40 Folate 17.48 ng/mL (5.90 - >24.8) 10/26/22 05:40 Urine Color YELLOW 10/25/22 08:58 Urine Clarity CLEAR (CLEAR) 10/25/22 08:58 Urine pH 5.0 PH (5.0-7.5) 10/25/22 08:58 Ur Specific [place] 1.020 (1.002-1.030) 10/25/22 08:58 Urine Protein NEGATIVE mg/dL (NEGATIVE) 10/25/22 08:58 Urine Glucose (UA) NEGATIVE mg/dL (NEGATIVE) 10/25/22 08:58 Urine Ketones NEGATIVE mg/dL (NEGATIVE) 10/25/22 08:58 Urine Occult Blood TRACE-INTA (NEGATIVE) 10/25/22 08:58 Urine Nitrite NEGATIVE (NEGATIVE) 10/25/22 08:58 Urine Bilirubin NEGATIVE (NEGATIVE) 10/25/22 08:58 Urine Urobilinogen 0.2 (NORMAL) E.U./dL (NORMAL) 10/25/22 08:58 Ur Leukocyte Esterase NEGATIVE (NEGATIVE) 10/25/22 08:58 Urine RBC 0-5 /HPF (0-5) 10/25/22 08:58 Urine WBC 0-3 /HPF (0-3) 10/25/22 08:58 Ur Squamous Epith Cells RARE Squamous (<= Few) 10/25/22 08:58 Urine Bacteria Rare /HPF (None Seen) 10/25/22 08:58 Urine Culture Comments NOT INDICATED 10/25/22 08:58 - Procedures Procedures: Procedures EXTIRPATION OF MATTER FROM LOWER ESOPHAGUS, ENDO (09/17/20) ABX Reporting Has patient been on IV antibiotics over the past 48 hours?: No
[2022-10-28] MEDS: SODIUM CHLORIDE FLUSH 0.9% 10 ML SYRINGE IVP SCH ×3 (00:50→15:43)
[2022-10-28] MEDS: SODIUM CHLORIDE 0.9% 1,000 ML IV SCH ×2 (05:26→14:33)
[2022-10-28] MEDS: MULTIVITAMIN W/MINERALS TABLET PO SCH (07:50)
[2022-10-28 08:23] LABS: BASOPHILS % (AUTO) 0.3 %; EOSINOPHILS # (AUTO) 0.2 10^3/uL (0.0-0.7); EOSINOPHILS % (AUTO) 2.1 %; HCT - HEMATOCRIT 29.4 % (42.0-52.0); HGB - HEMOGLOBIN 9.4 g/dL (14.0-18.0); LYMPHOCYTES # (AUTO) 1.1 10^3/uL (1.5-3.5); LYMPHOCYTES % (AUTO) 10.8 %; MEAN CORPUSCULAR HEMOGLOBIN 30.2 pg (27.0-31.0); MEAN CORPUSCULAR VOLUME 94.5 fL (80.0-94.0); MEAN PLATELET VOLUME 12.1 fL (7.4-11.4); MONOCYTES # (AUTO) 0.8 10^3/uL (0.0-1.0); MONOCYTES % (AUTO) 7.2 %; NEUTROPHILS # (AUTO) 8.2 10^3/uL (1.5-6.6); NEUTROPHILS % (AUTO) 79.3 %; PLT - PLATELET COUNT 109 10^3/uL (130-450); RED BLOOD COUNT 3.11 10^6/uL (4.70-6.10); RED CELL DISTRIBUTION WIDTH 13.8 % (12.0-15.0); WHITE BLOOD COUNT 10.4 x10^3/uL (4.8-10.8)
[2022-10-28 09:32] LABS: ALBUMIN 2.3 g/dL (3.2-5.5); ALBUMIN/GLOBULIN RATIO 0.7 (1.0-2.2); BILIRUBIN,TOTAL 0.5 mg/dL (0.2-1.0); CALCIUM 7.8 mg/dL (8.5-10.3); POTASSIUM 4.2 mmol/L (3.5-5.0); TOTAL PROTEIN 5.7 g/dL (6.7-8.2)
--- NOTE | 2022-10-28 14:20 | PROVIDER PROGRESS NOTE ---
Assessment/Plan - Current Meds Current Meds: Current Medications Generic Name Dose Route Start Last Admin Trade Name Freq PRN Reason Stop Dose Admin Acetaminophen 650 mg 10/25/22 12:15 10/25/22 13:22 Acetaminophen 325 Mg Tablet PO 650 mg Q4HR PRN Administration Pain 1 to 4, or Fever Sodium Chloride 1,000 mls @ 100 mls/hr 10/25/22 13:00 10/28/22 05:26 Normal Saline 0.9% IV 100 mls/hr .Q10H ISAURA Administration Multivitamins/Minerals 1 tab 10/26/22 10:00 10/28/22 07:50 Multivitamin W/Minerals Tablet PO 1 tab DAILYWM ISAURA Administration Sodium Chloride 10 ml 10/25/22 12:15 10/25/22 13:24 Sodium Chloride Flush 0.9% 10 Ml Syringe IVP 10 ml PRN PRN Administration NEEDED PER PROVIDER ORDERS Sodium Chloride 10 ml 10/25/22 17:00 10/28/22 07:50 Sodium Chloride Flush 0.9% 10 Ml Syringe IVP 10 ml 0100,0900,1700 ISAURA Administration - Lab Result Fish Bone Diagrams: 10/28/22 07:55 10/28/22 07:55 - Additional Planning My Orders: My Active Orders 10/27/22 15:22 Wound Care - MAC [RC] .ONCE 10/28/22 11:09 Miscellaenous Nursing Order [RC] AC 10/29/22 05:00 CBC - COMP BLD CT W/AUTO DIFF [HEME] DAILYLAB CMP [COMPREHENSIVE METABOLIC PANEL] [CHEM] DAILYLAB 10/30/22 05:00 CBC - COMP BLD CT W/AUTO DIFF [HEME] DAILYLAB CMP [COMPREHENSIVE METABOLIC PANEL] [CHEM] DAILYLAB 10/31/22 05:00 CBC - COMP BLD CT W/AUTO DIFF [HEME] DAILYLAB CMP [COMPREHENSIVE METABOLIC PANEL] [CHEM] DAILYLAB 11/01/22 05:00 CBC - COMP BLD CT W/AUTO DIFF [HEME] DAILYLAB CMP [COMPREHENSIVE METABOLIC PANEL] [CHEM] DAILYLAB Subjective - Subjective Patient Reports: Other (Patient encouraged to get out of bed with assistance and to have meals in chair. Reviewed this with patient and significant other at bedside. Also did discontinue his telemetry.) Objective Vital Signs: Vital Signs - 24 hr 0610/27/22 10/28/22 16:00 21:00 00:03 Temperature 36.4 C L 36.7 C 37.3 C Heart Rate [ 81 76 63 Brachial] Respiratory 18 18 18 Rate Blood Pressure 148/77 H 136/69 H 137/66 H [Right Brachial artery] O2 Saturation 94 95 94 10/28/22 10/28/22 10/28/22 05:08 06:32 08:00 Temperature 37.4 C 36.4 C L 36.9 C Heart Rate [ 75 71 Brachial] Respiratory 18 18 Rate Blood Pressure 118/63 118/54 L [Right Brachial artery] O2 Saturation 94 94 10/28/22 12:00 Temperature 36.4 C L Heart Rate [ 71 Brachial] Respiratory 18 Rate Blood Pressure 130/66 [Right Brachial artery] O2 Saturation 98 Oxygen O2 Source Room air Oxygen Flow Rate 2 I&O (Last 24 Hrs): Intake and Output Totals x24h 10/26/22 10/27/22 10/28/22 23:59 23:59 23:59 Intake Total 2791.667 3190 1620 Balance 2791.667 3190 1620 General: Alert, Oriented x3 HEENT: Atraumatic Neck: Supple Neuro: Alert, Non Focal Cardiovascular: Regular rate, Normal S1, Normal S2 Respiratory: No respiratory distress Abdomen: Soft Extremities: No edema - Results Results: Laboratory Results WBC 10.4 x10^3/uL (4.8-10.8) 10/28/22 07:55 RBC 3.11 10^6/uL (4.70-6.10) L 10/28/22 07:55 Hgb 9.4 g/dL (14.0-18.0) L 10/28/22 07:55 Hct 29.4 % (42.0-52.0) L 10/28/22 07:55 MCV 94.5 fL (80.0-94.0) H 10/28/22 07:55 MCH 30.2 pg (27.0-31.0) 10/28/22 07:55 MCHC 32.0 g/dL (32.0-36.0) 10/28/22 07:55 RDW 13.8 % (12.0-15.0) 10/28/22 07:55 Plt Count 109 10^3/uL (130-450) L 10/28/22 07:55 MPV 12.1 fL (7.4-11.4) H 10/28/22 07:55 Neut # (Auto) 8.2 10^3/uL (1.5-6.6) H 10/28/22 07:55 Lymph # (Auto) 1.1 10^3/uL (1.5-3.5) L 10/28/22 07:55 [place] # (Auto) 0.8 10^3/uL (0.0-1.0) 10/28/22 07:55 Eos # (Auto) 0.2 10^3/uL (0.0-0.7) 10/28/22 07:55 Baso # (Auto) 0.0 10^3/uL (0.0-0.1) 10/28/22 07:55 Absolute Nucleated RBC 0.00 x10^3/uL 10/28/22 07:55 Nucleated RBC % 0.0 /100WBC 10/28/22 07:55 VBG pH 7.369 (7.31-7.41) 10/26/22 05:40 Ionized Calcium 1.14 mmol/L (1.15-1.33) L 10/26/22 05:40 Sodium 142 mmol/L (135-145) 10/28/22 07:55 Potassium 4.2 mmol/L (3.5-5.0) 10/28/22 07:55 Chloride 114 mmol/L (101-111) H 10/28/22 07:55 Carbon Dioxide 24 mmol/L (21-32) 10/28/22 07:55 Anion Gap 4.0 (6-13) L 10/28/22 07:55 BUN 18 mg/dL (6-20) 10/28/22 07:55 Creatinine 1.0 mg/dL (0.6-1.2) 10/28/22 07:55 Estimated GFR (MDRD) 72 (>89) L 10/28/22 07:55 Glucose 98 mg/dL (70-100) 10/28/22 07:55 Lactic Acid 0.7 mmol/L (0.5-2.2) 10/25/22 08:42 Calcium 7.8 mg/dL (8.5-10.3) L 10/28/22 07:55 Ionized Calcium YES 10/26/22 05:40 Iron 90 ug/dL (45-182) 10/26/22 05:40 TIBC 223 ug/dL (250-450) L 10/26/22 05:40 % Saturation 40 % (20-50) 10/26/22 05:40 Transferrin 159 mg/dL (180-329) L 10/26/22 05:40 Ferritin 96.3 ng/mL (23.9-336.2) 10/26/22 05:40 Total Bilirubin 0.5 mg/dL (0.2-1.0) 10/28/22 07:55 AST 16 IU/L (10-42) 10/28/22 07:55 ALT 12 IU/L (10-60) 10/28/22 07:55 Alkaline Phosphatase 68 IU/L (42-121) 10/28/22 07:55 Troponin I High Sens 7.0 ng/L (2.3-19.7) 10/26/22 05:40 Total Protein 5.7 g/dL (6.7-8.2) L 10/28/22 07:55 Albumin 2.3 g/dL (3.2-5.5) L 10/28/22 07:55 Globulin 3.4 g/dL (2.1-4.2) 10/28/22 07:55 Albumin/Globulin Ratio 0.7 (1.0-2.2) L 10/28/22 07:55 Vitamin B12 431 pg/mL (180-914) 10/26/22 05:40 Folate 17.48 ng/mL (5.90 - >24.8) 10/26/22 05:40 Urine Color YELLOW 10/25/22 08:58 Urine Clarity CLEAR (CLEAR) 10/25/22 08:58 Urine pH 5.0 PH (5.0-7.5) 10/25/22 08:58 Ur Specific [place] 1.020 (1.002-1.030) 10/25/22 08:58 Urine Protein NEGATIVE mg/dL (NEGATIVE) 10/25/22 08:58 Urine Glucose (UA) NEGATIVE mg/dL (NEGATIVE) 10/25/22 08:58 Urine Ketones NEGATIVE mg/dL (NEGATIVE) 10/25/22 08:58 Urine Occult Blood TRACE-INTA (NEGATIVE) 10/25/22 08:58 Urine Nitrite NEGATIVE (NEGATIVE) 10/25/22 08:58 Urine Bilirubin NEGATIVE (NEGATIVE) 10/25/22 08:58 Urine Urobilinogen 0.2 (NORMAL) E.U./dL (NORMAL) 10/25/22 08:58 Ur Leukocyte Esterase NEGATIVE (NEGATIVE) 10/25/22 08:58 Urine RBC 0-5 /HPF (0-5) 10/25/22 08:58 Urine WBC 0-3 /HPF (0-3) 10/25/22 08:58 Ur Squamous Epith Cells RARE Squamous (<= Few) 10/25/22 08:58 Urine Bacteria Rare /HPF (None Seen) 10/25/22 08:58 Urine Culture Comments NOT INDICATED 10/25/22 08:58 - Procedures Procedures: Procedures EXTIRPATION OF MATTER FROM LOWER ESOPHAGUS, ENDO (09/17/20) ABX Reporting Has patient been on IV antibiotics over the past 48 hours?: No
[2022-10-29] MEDS: SODIUM CHLORIDE 0.9% 1,000 ML IV SCH ×3 (00:22→19:54)
[2022-10-29] MEDS: SODIUM CHLORIDE FLUSH 0.9% 10 ML SYRINGE IVP SCH ×3 (00:23→17:09)
[2022-10-29 05:13] LABS: BASOPHILS % (AUTO) 0.5 %; EOSINOPHILS # (AUTO) 0.3 10^3/uL (0.0-0.7); EOSINOPHILS % (AUTO) 3.8 %; HCT - HEMATOCRIT 28.2 % (42.0-52.0); HGB - HEMOGLOBIN 9.1 g/dL (14.0-18.0); LYMPHOCYTES # (AUTO) 1.4 10^3/uL (1.5-3.5); LYMPHOCYTES % (AUTO) 17.2 %; MEAN CORPUSCULAR HEMOGLOBIN 30.6 pg (27.0-31.0); MEAN CORPUSCULAR HGB CONC 32.3 g/dL (32.0-36.0); MEAN CORPUSCULAR VOLUME 94.9 fL (80.0-94.0); MEAN PLATELET VOLUME 11.6 fL (7.4-11.4); MONOCYTES # (AUTO) 0.7 10^3/uL (0.0-1.0); MONOCYTES % (AUTO) 8.5 %; NEUTROPHILS # (AUTO) 5.7 10^3/uL (1.5-6.6); NEUTROPHILS % (AUTO) 69.6 %; PLT - PLATELET COUNT 90 10^3/uL (130-450); RED BLOOD COUNT 2.97 10^6/uL (4.70-6.10); RED CELL DISTRIBUTION WIDTH 13.7 % (12.0-15.0); WHITE BLOOD COUNT 8.1 x10^3/uL (4.8-10.8)
[2022-10-29 05:25] LABS: ALBUMIN 2.3 g/dL (3.2-5.5); ALBUMIN/GLOBULIN RATIO 0.7 (1.0-2.2); BILIRUBIN,TOTAL 0.4 mg/dL (0.2-1.0); CALCIUM 7.8 mg/dL (8.5-10.3); CREATININE 0.9 mg/dL (0.6-1.2); POTASSIUM 4.1 mmol/L (3.5-5.0); TOTAL PROTEIN 5.6 g/dL (6.7-8.2)
[2022-10-29] MEDS: MULTIVITAMIN W/MINERALS TABLET PO SCH (08:34)
--- NOTE | 2022-10-29 15:54 | PROVIDER PROGRESS NOTE ---
Assessment/Plan - Problem List (2) PAUL (acute kidney injury) Assessment/Plan: Conclusion/Plan: Patient is on lisinopril will hold this and possibly related to PAUL. We will continue to monitor and give IV fluid hydration. -October 26, 2022-hyperkalemia has resolved (2) PAUL (acute kidney injury) Conclusion/Plan: Unclear etiology at this point. We will hold patient's Lasix and lisinopril. Check CT of abdomen pelvis without contrast -Avoid nephrotoxic agents October 26, 2022-GFR has improved and will continue with IV fluid hydration. CT of abdomen pelvis with contrast did not reveal any abnormalities (3) Generalized weakness Conclusion/Plan: Suspected secondary to patient's PAUL with possible dehydration and will evaluate for other etiology. Progress activity as tolerated in the hospital. OT/PT consults pending (4) Hypertension Conclusion/Plan: We will hold his antihypertensive meds for now and monitor. Holding because of hyperkalemia and PAUL. (5) Anemia Conclusion/Plan: Patient currently with acute on chronic anemia. Will check iron profile, vitamin B12 and folate. -October 26, 2022-B12 folate and iron studies are normal. Anemia may be secondary to PALU 6. Gluteal wound, -Wound cre consult placed - Current Meds Current Meds: Current Medications Generic Name Dose Route Start Last Admin Trade Name Freq PRN Reason Stop Dose Admin Acetaminophen 650 mg 10/25/22 12:15 10/25/22 13:22 Acetaminophen 325 Mg Tablet PO 650 mg Q4HR PRN Administration Pain 1 to 4, or Fever Sodium Chloride 1,000 mls @ 100 mls/hr 10/25/22 13:00 10/29/22 10:23 Normal Saline 0.9% IV 100 mls/hr .Q10H ISAURA Administration Multivitamins/Minerals 1 tab 10/26/22 10:00 10/29/22 08:34 Multivitamin W/Minerals Tablet PO 1 tab DAILYWM ISAURA Administration Sodium Chloride 10 ml 10/25/22 12:15 10/25/22 13:24 Sodium Chloride Flush 0.9% 10 Ml Syringe IVP 10 ml PRN PRN Administration NEEDED PER PROVIDER ORDERS Sodium Chloride 10 ml 10/25/22 17:00 10/29/22 08:34 Sodium Chloride Flush 0.9% 10 Ml Syringe IVP 10 ml 0100,0900,1700 ISAURA Administration - Lab Result Fish Bone Diagrams: 10/29/22 05:03 10/29/22 05:03 - Additional Planning My Orders: My Active Orders 10/29/22 Wound Consult MAC [MAC] Routine 10/30/22 05:00 CBC - COMP BLD CT W/AUTO DIFF [HEME] DAILYLAB CMP [COMPREHENSIVE METABOLIC PANEL] [CHEM] DAILYLAB 10/31/22 05:00 CBC - COMP BLD CT W/AUTO DIFF [HEME] DAILYLAB CMP [COMPREHENSIVE METABOLIC PANEL] [CHEM] DAILYLAB 11/01/22 05:00 CBC - COMP BLD CT W/AUTO DIFF [HEME] DAILYLAB CMP [COMPREHENSIVE METABOLIC PANEL] [CHEM] DAILYLAB Subjective - Subjective Patient Reports: Feeling Better (in chair eating. Less confused and interactive.) Objective Vital Signs: Vital Signs - 24 hr 10/28/22 10/28/22 10/29/22 16:00 20:00 00:27 Temperature 37.0 C 37.0 C 37.0 C Heart Rate [ 73 71 74 Brachial] Respiratory 20 18 18 Rate Blood Pressure 128/62 138/71 H 141/66 H [Right Brachial artery] O2 Saturation 95 95 96 10/29/22 10/29/22 10/29/22 05:17 08:45 13:00 Temperature 36.7 C 36.6 C 36.9 C Heart Rate [ 71 75 63 Brachial] Respiratory 18 20 18 Rate Blood Pressure 123/60 131/60 H 121/59 L [Right Brachial artery] O2 Saturation 94 95 99 Oxygen O2 Source Room air Oxygen Flow Rate 2 I&O (Last 24 Hrs): Intake and Output Totals x24h 10/27/22 10/28/22 10/29/22 23:59 23:59 23:59 Intake Total 3190 3031.667 2951.667 Balance 3190 3031.667 2951.667 General: Alert, Oriented x3 Neck: Supple Neuro: Alert, Non Focal Cardiovascular: Regular rate, Normal S1, Normal S2 Respiratory: Breath sounds nml Abdomen: Normal bowel sounds, Soft Extremities: No edema - Results Results: Laboratory Results WBC 8.1 x10^3/uL (4.8-10.8) 10/29/22 05:03 RBC 2.97 10^6/uL (4.70-6.10) L 10/29/22 05:03 Hgb 9.1 g/dL (14.0-18.0) L 10/29/22 05:03 Hct 28.2 % (42.0-52.0) L 10/29/22 05:03 MCV 94.9 fL (80.0-94.0) H 10/29/22 05:03 MCH 30.6 pg (27.0-31.0) 10/29/22 05:03 MCHC 32.3 g/dL (32.0-36.0) 10/29/22 05:03 RDW 13.7 % (12.0-15.0) 10/29/22 05:03 Plt Count 90 10^3/uL (130-450) L 10/29/22 05:03 MPV 11.6 fL (7.4-11.4) H 10/29/22 05:03 Neut # (Auto) 5.7 10^3/uL (1.5-6.6) 10/29/22 05:03 Lymph # (Auto) 1.4 10^3/uL (1.5-3.5) L 10/29/22 05:03 [place] # (Auto) 0.7 10^3/uL (0.0-1.0) 10/29/22 05:03 Eos # (Auto) 0.3 10^3/uL (0.0-0.7) 10/29/22 05:03 Baso # (Auto) 0.0 10^3/uL (0.0-0.1) 10/29/22 05:03 Absolute Nucleated RBC 0.00 x10^3/uL 10/29/22 05:03 Nucleated RBC % 0.0 /100WBC 10/29/22 05:03 VBG pH 7.369 (7.31-7.41) 10/26/22 05:40 Ionized Calcium 1.14 mmol/L (1.15-1.33) L 10/26/22 05:40 Sodium 142 mmol/L (135-145) 10/29/22 05:03 Potassium 4.1 mmol/L (3.5-5.0) 10/29/22 05:03 Chloride 115 mmol/L (101-111) H 10/29/22 05:03 Carbon Dioxide 24 mmol/L (21-32) 10/29/22 05:03 Anion Gap 3.0 (6-13) L 10/29/22 05:03 BUN 16 mg/dL (6-20) 10/29/22 05:03 Creatinine 0.9 mg/dL (0.6-1.2) 10/29/22 05:03 Estimated GFR (MDRD) 81 (>89) L 10/29/22 05:03 Glucose 99 mg/dL (70-100) 10/29/22 05:03 Lactic Acid 0.7 mmol/L (0.5-2.2) 10/25/22 08:42 Calcium 7.8 mg/dL (8.5-10.3) L 10/29/22 05:03 Ionized Calcium YES 10/26/22 05:40 Iron 90 ug/dL (45-182) 10/26/22 05:40 TIBC 223 ug/dL (250-450) L 10/26/22 05:40 % Saturation 40 % (20-50) 10/26/22 05:40 Transferrin 159 mg/dL (180-329) L 10/26/22 05:40 Ferritin 96.3 ng/mL (23.9-336.2) 10/26/22 05:40 Total Bilirubin 0.4 mg/dL (0.2-1.0) 10/29/22 05:03 AST 12 IU/L (10-42) 10/29/22 05:03 ALT 13 IU/L (10-60) 10/29/22 05:03 Alkaline Phosphatase 68 IU/L (42-121) 10/29/22 05:03 Troponin I High Sens 7.0 ng/L (2.3-19.7) 10/26/22 05:40 Total Protein 5.6 g/dL (6.7-8.2) L 10/29/22 05:03 Albumin 2.3 g/dL (3.2-5.5) L 10/29/22 05:03 Globulin 3.3 g/dL (2.1-4.2) 10/29/22 05:03 Albumin/Globulin Ratio 0.7 (1.0-2.2) L 10/29/22 05:03 Vitamin B12 431 pg/mL (180-914) 10/26/22 05:40 Folate 17.48 ng/mL (5.90 - >24.8) 10/26/22 05:40 Urine Color YELLOW 10/25/22 08:58 Urine Clarity CLEAR (CLEAR) 10/25/22 08:58 Urine pH 5.0 PH (5.0-7.5) 10/25/22 08:58 Ur Specific [place] 1.020 (1.002-1.030) 10/25/22 08:58 Urine Protein NEGATIVE mg/dL (NEGATIVE) 10/25/22 08:58 Urine Glucose (UA) NEGATIVE mg/dL (NEGATIVE) 10/25/22 08:58 Urine Ketones NEGATIVE mg/dL (NEGATIVE) 10/25/22 08:58 Urine Occult Blood TRACE-INTA (NEGATIVE) 10/25/22 08:58 Urine Nitrite NEGATIVE (NEGATIVE) 10/25/22 08:58 Urine Bilirubin NEGATIVE (NEGATIVE) 10/25/22 08:58 Urine Urobilinogen 0.2 (NORMAL) E.U./dL (NORMAL) 10/25/22 08:58 Ur Leukocyte Esterase NEGATIVE (NEGATIVE) 10/25/22 08:58 Urine RBC 0-5 /HPF (0-5) 10/25/22 08:58 Urine WBC 0-3 /HPF (0-3) 10/25/22 08:58 Ur Squamous Epith Cells RARE Squamous (<= Few) 10/25/22 08:58 Urine Bacteria Rare /HPF (None Seen) 10/25/22 08:58 Urine Culture Comments NOT INDICATED 10/25/22 08:58 - Procedures Procedures: Procedures EXTIRPATION OF MATTER FROM LOWER ESOPHAGUS, ENDO (09/17/20) ABX Reporting Has patient been on IV antibiotics over the past 48 hours?: Yes
[2022-10-30] MEDS: SODIUM CHLORIDE FLUSH 0.9% 10 ML SYRINGE IVP SCH ×3 (00:34→15:11)
[2022-10-30] MEDS: SODIUM CHLORIDE 0.9% 1,000 ML IV SCH (05:30)
[2022-10-30 06:00] LABS: BASOPHILS # (AUTO) 0.1 10^3/uL (0.0-0.1); BASOPHILS % (AUTO) 0.6 %; EOSINOPHILS # (AUTO) 0.4 10^3/uL (0.0-0.7); EOSINOPHILS % (AUTO) 4.9 %; HCT - HEMATOCRIT 28.7 % (42.0-52.0); HGB - HEMOGLOBIN 9.2 g/dL (14.0-18.0); LYMPHOCYTES # (AUTO) 1.2 10^3/uL (1.5-3.5); LYMPHOCYTES % (AUTO) 13.9 %; MEAN CORPUSCULAR HEMOGLOBIN 30.3 pg (27.0-31.0); MEAN CORPUSCULAR HGB CONC 32.1 g/dL (32.0-36.0); MEAN CORPUSCULAR VOLUME 94.4 fL (80.0-94.0); MEAN PLATELET VOLUME 11.5 fL (7.4-11.4); MONOCYTES # (AUTO) 0.6 10^3/uL (0.0-1.0); MONOCYTES % (AUTO) 7.4 %; NEUTROPHILS # (AUTO) 6.2 10^3/uL (1.5-6.6); NEUTROPHILS % (AUTO) 72.8 %; PLT - PLATELET COUNT 89 10^3/uL (130-450); RED BLOOD COUNT 3.04 10^6/uL (4.70-6.10); RED CELL DISTRIBUTION WIDTH 13.8 % (12.0-15.0); WHITE BLOOD COUNT 8.6 x10^3/uL (4.8-10.8)
[2022-10-30 06:14] LABS: ALBUMIN 2.3 g/dL (3.2-5.5); ALBUMIN/GLOBULIN RATIO 0.7 (1.0-2.2); BILIRUBIN,TOTAL 0.3 mg/dL (0.2-1.0); CALCIUM 7.8 mg/dL (8.5-10.3); CREATININE 0.9 mg/dL (0.6-1.2); POTASSIUM 3.8 mmol/L (3.5-5.0); TOTAL PROTEIN 5.5 g/dL (6.7-8.2)
[2022-10-30] MEDS: MULTIVITAMIN W/MINERALS TABLET PO SCH (08:09)
[2022-10-30] MEDS ORDERED: ZINC OXIDE 20% OINT 30 GM TUBE TOP PRN (12:23)
--- NOTE | 2022-10-30 14:33 | PROVIDER PROGRESS NOTE ---
Assessment/Plan - Problem List (1) Hyperkalemia Assessment/Plan: Conclusion/Plan: Patient is on lisinopril will hold this and possibly related to PAUL. We will continue to monitor and give IV fluid hydration. -October 26, 2022-hyperkalemia has resolved (2) PAUL (acute kidney injury) Conclusion/Plan: Unclear etiology at this point. We will hold patient's Lasix and lisinopril. Check CT of abdomen pelvis without contrast -Avoid nephrotoxic agents October 26, 2022-GFR has improved and will continue with IV fluid hydration. CT of abdomen pelvis with contrast did not reveal any abnormalities (3) Generalized weakness Conclusion/Plan: Suspected secondary to patient's PAUL with possible dehydration and will evaluate for other etiology. Progress activity as tolerated in the hospital. OT/PT consults Following -Most likely will be needing SNF for rehab. His female partner who he lives with is also appearing not to be able to care for him due to her current physical status (4) Hypertension Conclusion/Plan: We will hold his antihypertensive meds for now and monitor. Holding because of hyperkalemia and PAUL. (5) Anemia Conclusion/Plan: Patient currently with acute on chronic anemia. Will check iron profile, vitamin B12 and folate. -October 26, 2022-B12 folate and iron studies are normal. Anemia may be secondary to PAUL 6. Gluteal wound, -Wound cre consult placedAnd awaiting consult - Current Meds Current Meds: Current Medications Generic Name Dose Route Start Last Admin Trade Name Freq PRN Reason Stop Dose Admin Acetaminophen 650 mg 10/25/22 12:15 10/25/22 13:22 Acetaminophen 325 Mg Tablet PO 650 mg Q4HR PRN Administration Pain 1 to 4, or Fever Sodium Chloride 1,000 mls @ 100 mls/hr 10/25/22 13:00 10/30/22 05:30 Normal Saline 0.9% IV 100 mls/hr .Q10H ISAURA Administration Multivitamins/Minerals 1 tab 10/26/22 10:00 10/30/22 08:09 Multivitamin W/Minerals Tablet PO 1 tab DAILYWM ISAURA Administration Sodium Chloride 10 ml 10/25/22 12:15 10/25/22 13:24 Sodium Chloride Flush 0.9% 10 Ml Syringe IVP 10 ml PRN PRN Administration NEEDED PER PROVIDER ORDERS Sodium Chloride 10 ml 10/25/22 17:00 10/30/22 08:09 Sodium Chloride Flush 0.9% 10 Ml Syringe IVP 10 ml 0100,0900,1700 [facility] Administration - Lab Result Fish Bone Diagrams: 10/30/22 05:45 10/30/22 05:45 - Additional Planning My Orders: My Active Orders 10/30/22 12:23 Zinc Oxide 20% Oint [Zinc Oxide] 1 applic TOP PRN PRN 10/31/22 05:00 CBC - COMP BLD CT W/AUTO DIFF [HEME] DAILYLAB CMP [COMPREHENSIVE METABOLIC PANEL] [CHEM] DAILYLAB 11/01/22 05:00 CBC - COMP BLD CT W/AUTO DIFF [HEME] DAILYLAB CMP [COMPREHENSIVE METABOLIC PANEL] [CHEM] DAILYLAB Subjective - Subjective Patient Reports: Resting Comfortably Objective Vital Signs: Vital Signs - 24 hr 10/29/22 10/29/22 10/29/22 17:00 20:08 23:47 Temperature 36.7 C 36.4 C L 36.7 C Heart Rate [ 65 73 77 Brachial] Respiratory 19 20 18 Rate Blood Pressure 134/64 H 139/64 H 120/59 L [Right Brachial artery] O2 Saturation 100 99 95 10/30/22 10/30/22 10/30/22 06:00 08:25 12:07 Temperature 36.7 C 36.4 C L 36.5 C Heart Rate [ 65 78 62 Brachial] Respiratory 18 18 18 Rate Blood Pressure 123/61 146/74 H 115/60 [Right Brachial artery] O2 Saturation 96 96 98 Oxygen O2 Source Room air Oxygen Flow Rate 2 I&O (Last 24 Hrs): Intake and Output Totals x24h 10/28/22 10/29/22 10/30/22 23:59 23:59 23:59 Intake Total 3031.667 4393.334 1130 Balance 3031.667 4393.334 1130 General: Cooperative HEENT: Atraumatic Neck: Supple Neuro: Non Focal Cardiovascular: Regular rate, Normal S1, Normal S2 Respiratory: Breath sounds nml Comments/Notes: Some breakdown noticed in the gluteal area - Results Results: Laboratory Results WBC 8.6 x10^3/uL (4.8-10.8) 10/30/22 05:45 RBC 3.04 10^6/uL (4.70-6.10) L 10/30/22 05:45 Hgb 9.2 g/dL (14.0-18.0) L 10/30/22 05:45 Hct 28.7 % (42.0-52.0) L 10/30/22 05:45 MCV 94.4 fL (80.0-94.0) H 10/30/22 05:45 MCH 30.3 pg (27.0-31.0) 10/30/22 05:45 MCHC 32.1 g/dL (32.0-36.0) 10/30/22 05:45 RDW 13.8 % (12.0-15.0) 10/30/22 05:45 Plt Count 89 10^3/uL (130-450) L 10/30/22 05:45 MPV 11.5 fL (7.4-11.4) H 10/30/22 05:45 Neut # (Auto) 6.2 10^3/uL (1.5-6.6) 10/30/22 05:45 Lymph # (Auto) 1.2 10^3/uL (1.5-3.5) L 10/30/22 05:45 [place] # (Auto) 0.6 10^3/uL (0.0-1.0) 10/30/22 05:45 Eos # (Auto) 0.4 10^3/uL (0.0-0.7) 10/30/22 05:45 Baso # (Auto) 0.1 10^3/uL (0.0-0.1) 10/30/22 05:45 Absolute Nucleated RBC 0.00 x10^3/uL 10/30/22 05:45 Nucleated RBC % 0.0 /100WBC 10/30/22 05:45 VBG pH 7.369 (7.31-7.41) 10/26/22 05:40 Ionized Calcium 1.14 mmol/L (1.15-1.33) L 10/26/22 05:40 Sodium 141 mmol/L (135-145) 10/30/22 05:45 Potassium 3.8 mmol/L (3.5-5.0) 10/30/22 05:45 Chloride 116 mmol/L (101-111) H 10/30/22 05:45 Carbon Dioxide 24 mmol/L (21-32) 10/30/22 05:45 Anion Gap 1.0 (6-13) L 10/30/22 05:45 BUN 17 mg/dL (6-20) 10/30/22 05:45 Creatinine 0.9 mg/dL (0.6-1.2) 10/30/22 05:45 Estimated GFR (MDRD) 81 (>89) L 10/30/22 05:45 Glucose 101 mg/dL (70-100) H 10/30/22 05:45 Lactic Acid 0.7 mmol/L (0.5-2.2) 10/25/22 08:42 Calcium 7.8 mg/dL (8.5-10.3) L 10/30/22 05:45 Ionized Calcium YES 10/26/22 05:40 Iron 90 ug/dL (45-182) 10/26/22 05:40 TIBC 223 ug/dL (250-450) L 10/26/22 05:40 % Saturation 40 % (20-50) 10/26/22 05:40 Transferrin 159 mg/dL (180-329) L 10/26/22 05:40 Ferritin 96.3 ng/mL (23.9-336.2) 10/26/22 05:40 Total Bilirubin 0.3 mg/dL (0.2-1.0) 10/30/22 05:45 AST 14 IU/L (10-42) 10/30/22 05:45 ALT 13 IU/L (10-60) 10/30/22 05:45 Alkaline Phosphatase 62 IU/L (42-121) 10/30/22 05:45 Troponin I High Sens 7.0 ng/L (2.3-19.7) 10/26/22 05:40 Total Protein 5.5 g/dL (6.7-8.2) L 10/30/22 05:45 Albumin 2.3 g/dL (3.2-5.5) L 10/30/22 05:45 Globulin 3.2 g/dL (2.1-4.2) 10/30/22 05:45 Albumin/Globulin Ratio 0.7 (1.0-2.2) L 10/30/22 05:45 Vitamin B12 431 pg/mL (180-914) 10/26/22 05:40 Folate 17.48 ng/mL (5.90 - >24.8) 10/26/22 05:40 Urine Color YELLOW 10/25/22 08:58 Urine Clarity CLEAR (CLEAR) 10/25/22 08:58 Urine pH 5.0 PH (5.0-7.5) 10/25/22 08:58 Ur Specific [place] 1.020 (1.002-1.030) 10/25/22 08:58 Urine Protein NEGATIVE mg/dL (NEGATIVE) 10/25/22 08:58 Urine Glucose (UA) NEGATIVE mg/dL (NEGATIVE) 10/25/22 08:58 Urine Ketones NEGATIVE mg/dL (NEGATIVE) 10/25/22 08:58 Urine Occult Blood TRACE-INTA (NEGATIVE) 10/25/22 08:58 Urine Nitrite NEGATIVE (NEGATIVE) 10/25/22 08:58 Urine Bilirubin NEGATIVE (NEGATIVE) 10/25/22 08:58 Urine Urobilinogen 0.2 (NORMAL) E.U./dL (NORMAL) 10/25/22 08:58 Ur Leukocyte Esterase NEGATIVE (NEGATIVE) 10/25/22 08:58 Urine RBC 0-5 /HPF (0-5) 10/25/22 08:58 Urine WBC 0-3 /HPF (0-3) 10/25/22 08:58 Ur Squamous Epith Cells RARE Squamous (<= Few) 10/25/22 08:58 Urine Bacteria Rare /HPF (None Seen) 10/25/22 08:58 Urine Culture Comments NOT INDICATED 10/25/22 08:58 - Procedures Procedures: Procedures EXTIRPATION OF MATTER FROM LOWER ESOPHAGUS, ENDO (09/17/20) ABX Reporting Has patient been on IV antibiotics over the past 48 hours?: No
[2022-10-31] MEDS: SODIUM CHLORIDE FLUSH 0.9% 10 ML SYRINGE IVP SCH ×3 (01:15→16:28)
[2022-10-31 05:45] LABS: BASOPHILS % (AUTO) 0.5 %; EOSINOPHILS # (AUTO) 0.5 10^3/uL (0.0-0.7); EOSINOPHILS % (AUTO) 6.5 %; HCT - HEMATOCRIT 28.1 % (42.0-52.0); HGB - HEMOGLOBIN 9.1 g/dL (14.0-18.0); LYMPHOCYTES # (AUTO) 1.3 10^3/uL (1.5-3.5); LYMPHOCYTES % (AUTO) 17.1 %; MEAN CORPUSCULAR HEMOGLOBIN 30.1 pg (27.0-31.0); MEAN CORPUSCULAR HGB CONC 32.4 g/dL (32.0-36.0); MEAN PLATELET VOLUME 11.5 fL (7.4-11.4); MONOCYTES # (AUTO) 0.5 10^3/uL (0.0-1.0); MONOCYTES % (AUTO) 7.2 %; NEUTROPHILS # (AUTO) 5.2 10^3/uL (1.5-6.6); NEUTROPHILS % (AUTO) 68.4 %; PLT - PLATELET COUNT 100 10^3/uL (130-450); RED BLOOD COUNT 3.02 10^6/uL (4.70-6.10); RED CELL DISTRIBUTION WIDTH 13.8 % (12.0-15.0); WHITE BLOOD COUNT 7.6 x10^3/uL (4.8-10.8)
[2022-10-31 05:57] LABS: ALBUMIN 2.3 g/dL (3.2-5.5); ALBUMIN/GLOBULIN RATIO 0.7 (1.0-2.2); BILIRUBIN,TOTAL 0.2 mg/dL (0.2-1.0); CALCIUM 7.9 mg/dL (8.5-10.3); CREATININE 0.8 mg/dL (0.6-1.2); POTASSIUM 3.9 mmol/L (3.5-5.0); TOTAL PROTEIN 5.8 g/dL (6.7-8.2)
[2022-10-31] MEDS: MULTIVITAMIN W/MINERALS TABLET PO SCH (07:26)
--- NOTE | 2022-10-31 15:42 | PROVIDER PROGRESS NOTE ---
Assessment/Plan - Problem List (1) Generalized weakness Assessment/Plan: Suspected secondary to patient's PAUL with possible dehydration. He is progressing activity as tolerated in the hospital with PT and OT. The female partner Rimma Daley told me today that a year and a half ago he fell and had a head injury, which led to 10 weeks of hospitalization in [place], then 3 to 4 weeks in a rehab center. And ever since then he has been weak, with a poor gait, uses a walker Plan: Since he cannot yet do toileting by himself or deal with the perineal wounds and cannot stand independently from a seated position, he most likely would be needing SNF for rehab. But he has insisted that because he is getting stronger he does not want to go to a SNF. His female partner who he lives with is also appearing not to be able to care for him due to her current physical status. The patient, his female partner and I today discussed their living arrangement: He walks with a walker, stays on one floor, he sleeps on a recliner for the past 6 years which is on that same floor, therefore he needs no hospital bed. There is 1 step from the house down to the concrete and he can then ambulate over and can usually get into a car. Therefore if he can manage 1 stair and be able to stand independently from a seated position, and walk using the walker, he could be discharged to home. Anticipate that he may be able to be discharged tomorrow. I will order a shower here He will need Home Health RN, Bath aid and PT and OT. 2 ) Anemia Conclusion/Plan: He has acute on chronic anemia. We checked his iron profile, vitamin B12 and folate. The B12 folate and iron studies were normal. 3) Gluteal wound Wound care consult was placed and we were awaiting consult from Wound provider, but they could not fit him onto the clinic schedule. His nurse Sudha, has been able to apply the zinc. Plan: I spoke with his female partner Rimma Daley today about applying zinc as she has done before Home Health will also be needed for managing this 4) Hx of Hypertension Conclusion/Plan: All his antihypertensive meds have been on hold because of hyperkalemia and PAUL. Plan: Since he is running systolics of 110-140, he will not need any BP meds going forward 5) Hyperkalemia Conclusion/Plan: RESOLVED Patient was on lisinopril which was put on hold and possibly caused the PAUL. As of 10/26 his hyperkalemia has resolved 6) PAUL (acute kidney injury) RESOLVED Unclear etiology at this point. We held patient's Lasix and lisinopril. Check CT of abdomen pelvis without contrast did not reveal any abnormalities As of 10/26, GFR has improved Plan: Avoid nephrotoxins Remain off of Lasix and Lisinopril - Current Meds Current Meds: Current Medications Generic Name Dose Route Start Last Admin Trade Name Freq PRN Reason Stop Dose Admin Acetaminophen 650 mg 10/25/22 12:15 10/25/22 13:22 Acetaminophen 325 Mg Tablet PO 650 mg Q4HR PRN Administration Pain 1 to 4, or Fever Multi-Ingredient Ointment 1 applic 10/30/22 12:23 10/31/22 07:30 Zinc Oxide 20% Oint 30 Gm Tube TOP 1 applic PRN PRN Administration Skin Care Multivitamins/Minerals 1 tab 10/26/22 10:00 10/31/22 07:26 Multivitamin W/Minerals Tablet PO 1 tab DAILYWM ISAURA Administration Sodium Chloride 10 ml 10/25/22 12:15 10/25/22 13:24 Sodium Chloride Flush 0.9% 10 Ml Syringe IVP 10 ml PRN PRN Administration NEEDED PER PROVIDER ORDERS Sodium Chloride 10 ml 10/25/22 17:00 10/31/22 07:26 Sodium Chloride Flush 0.9% 10 Ml Syringe IVP 10 ml 0100,0900,1700 ISAURA Administration - Lab Result Fish Bone Diagrams: 10/31/22 05:35 10/31/22 05:35 Subjective - Subjective Patient Reports: Feeling Better Nursing Reports: Other (PT said he was able to walk 80 steps using his walker today. He could not get up independently however from a seated position. He cannot wipe himself on the toilet. He has refused to take a shower all the days he has been here.) Objective Vital Signs: Vital Signs - 24 hr 10/30/22 10/30/22 10/31/22 16:18 23:52 07:58 Temperature 36.3 C L 36.4 C L 36.6 C Heart Rate [ 68 68 65 Brachial] Respiratory 18 18 16 Rate Blood Pressure 136/73 H 143/62 H 122/67 [Right Brachial artery] O2 Saturation 99 98 96 Oxygen O2 Source Room air Oxygen Flow Rate 2 I&O (Last 24 Hrs): Intake and Output Totals x24h 10/29/22 10/30/22 10/31/22 23:59 23:59 23:59 Intake Total 4393.334 2490 400 Balance 4393.334 2490 400 General: Alert, Oriented x3, Other (Disheveled with food particles around his mouth and down his clothes) HEENT: Mucous membr. moist/pink, Other (Poor dentition) Neck: Supple Neuro: Alert, Non Focal, Other (NENANA. Has mild facial droop on one side) Cardiovascular: Regular rate Respiratory: No respiratory distress Abdomen: Soft, No tenderness Extremities: No tenderness/swelling - Results Results: Laboratory Results WBC 7.6 x10^3/uL (4.8-10.8) 10/31/22 05:35 RBC 3.02 10^6/uL (4.70-6.10) L 10/31/22 05:35 Hgb 9.1 g/dL (14.0-18.0) L 10/31/22 05:35 Hct 28.1 % (42.0-52.0) L 10/31/22 05:35 MCV 93.0 fL (80.0-94.0) 10/31/22 05:35 MCH 30.1 pg (27.0-31.0) 10/31/22 05:35 MCHC 32.4 g/dL (32.0-36.0) 10/31/22 05:35 RDW 13.8 % (12.0-15.0) 10/31/22 05:35 Plt Count 100 10^3/uL (130-450) L 10/31/22 05:35 MPV 11.5 fL (7.4-11.4) H 10/31/22 05:35 Neut # (Auto) 5.2 10^3/uL (1.5-6.6) 10/31/22 05:35 Lymph # (Auto) 1.3 10^3/uL (1.5-3.5) L 10/31/22 05:35 [place] # (Auto) 0.5 10^3/uL (0.0-1.0) 10/31/22 05:35 Eos # (Auto) 0.5 10^3/uL (0.0-0.7) 10/31/22 05:35 Baso # (Auto) 0.0 10^3/uL (0.0-0.1) 10/31/22 05:35 Absolute Nucleated RBC 0.00 x10^3/uL 10/31/22 05:35 Nucleated RBC % 0.0 /100WBC 10/31/22 05:35 VBG pH 7.369 (7.31-7.41) 10/26/22 05:40 Ionized Calcium 1.14 mmol/L (1.15-1.33) L 10/26/22 05:40 Sodium 139 mmol/L (135-145) 10/31/22 05:35 Potassium 3.9 mmol/L (3.5-5.0) 10/31/22 05:35 Chloride 109 mmol/L (101-111) 10/31/22 05:35 Carbon Dioxide 25 mmol/L (21-32) 10/31/22 05:35 Anion Gap 5.0 (6-13) L 10/31/22 05:35 BUN 16 mg/dL (6-20) 10/31/22 05:35 Creatinine 0.8 mg/dL (0.6-1.2) 10/31/22 05:35 Estimated GFR (MDRD) 93 (>89) 10/31/22 05:35 Glucose 96 mg/dL (70-100) 10/31/22 05:35 Lactic Acid 0.7 mmol/L (0.5-2.2) 10/25/22 08:42 Calcium 7.9 mg/dL (8.5-10.3) L 10/31/22 05:35 Ionized Calcium YES 10/26/22 05:40 Iron 90 ug/dL (45-182) 10/26/22 05:40 TIBC 223 ug/dL (250-450) L 10/26/22 05:40 % Saturation 40 % (20-50) 10/26/22 05:40 Transferrin 159 mg/dL (180-329) L 10/26/22 05:40 Ferritin 96.3 ng/mL (23.9-336.2) 10/26/22 05:40 Total Bilirubin 0.2 mg/dL (0.2-1.0) 10/31/22 05:35 AST 16 IU/L (10-42) 10/31/22 05:35 ALT 16 IU/L (10-60) 10/31/22 05:35 Alkaline Phosphatase 71 IU/L (42-121) 10/31/22 05:35 Troponin I High Sens 7.0 ng/L (2.3-19.7) 10/26/22 05:40 Total Protein 5.8 g/dL (6.7-8.2) L 10/31/22 05:35 Albumin 2.3 g/dL (3.2-5.5) L 10/31/22 05:35 Globulin 3.5 g/dL (2.1-4.2) 10/31/22 05:35 Albumin/Globulin Ratio 0.7 (1.0-2.2) L 10/31/22 05:35 Vitamin B12 431 pg/mL (180-914) 10/26/22 05:40 Folate 17.48 ng/mL (5.90 - >24.8) 10/26/22 05:40 Urine Color YELLOW 10/25/22 08:58 Urine Clarity CLEAR (CLEAR) 10/25/22 08:58 Urine pH 5.0 PH (5.0-7.5) 10/25/22 08:58 Ur Specific [place] 1.020 (1.002-1.030) 10/25/22 08:58 Urine Protein NEGATIVE mg/dL (NEGATIVE) 10/25/22 08:58 Urine Glucose (UA) NEGATIVE mg/dL (NEGATIVE) 10/25/22 08:58 Urine Ketones NEGATIVE mg/dL (NEGATIVE) 10/25/22 08:58 Urine Occult Blood TRACE-INTA (NEGATIVE) 10/25/22 08:58 Urine Nitrite NEGATIVE (NEGATIVE) 10/25/22 08:58 Urine Bilirubin NEGATIVE (NEGATIVE) 10/25/22 08:58 Urine Urobilinogen 0.2 (NORMAL) E.U./dL (NORMAL) 10/25/22 08:58 Ur Leukocyte Esterase NEGATIVE (NEGATIVE) 10/25/22 08:58 Urine RBC 0-5 /HPF (0-5) 10/25/22 08:58 Urine WBC 0-3 /HPF (0-3) 10/25/22 08:58 Ur Squamous Epith Cells RARE Squamous (<= Few) 10/25/22 08:58 Urine Bacteria Rare /HPF (None Seen) 10/25/22 08:58 Urine Culture Comments NOT INDICATED 10/25/22 08:58 - Procedures Procedures: Procedures EXTIRPATION OF MATTER FROM LOWER ESOPHAGUS, ENDO (09/17/20)
[2022-11-01] MEDS: SODIUM CHLORIDE FLUSH 0.9% 10 ML SYRINGE IVP SCH ×2 (03:24→08:35)
[2022-11-01 07:37] VITALS: BP 124/71
[2022-11-01 07:42] LABS: ALBUMIN 2.4 g/dL (3.2-5.5); ALBUMIN/GLOBULIN RATIO 0.7 (1.0-2.2); BILIRUBIN,TOTAL 0.6 mg/dL (0.2-1.0); CALCIUM 8.1 mg/dL (8.5-10.3); CREATININE 0.8 mg/dL (0.6-1.2); TOTAL PROTEIN 5.9 g/dL (6.7-8.2)
[2022-11-01 07:43] LABS: POTASSIUM 4.2 mmol/L (3.5-5.0)
[2022-11-01 07:45] LABS: BASOPHILS # (AUTO) 0.1 10^3/uL (0.0-0.1); BASOPHILS % (AUTO) 0.8 %; EOSINOPHILS # (AUTO) 0.4 10^3/uL (0.0-0.7); EOSINOPHILS % (AUTO) 5.5 %; HCT - HEMATOCRIT 28.7 % (42.0-52.0); HGB - HEMOGLOBIN 9.1 g/dL (14.0-18.0); LYMPHOCYTES # (AUTO) 1.3 10^3/uL (1.5-3.5); LYMPHOCYTES % (AUTO) 16.8 %; MEAN CORPUSCULAR HEMOGLOBIN 30.1 pg (27.0-31.0); MEAN CORPUSCULAR HGB CONC 31.7 g/dL (32.0-36.0); MEAN PLATELET VOLUME 11.7 fL (7.4-11.4); MONOCYTES # (AUTO) 0.7 10^3/uL (0.0-1.0); MONOCYTES % (AUTO) 8.4 %; NEUTROPHILS # (AUTO) 5.4 10^3/uL (1.5-6.6); NEUTROPHILS % (AUTO) 68.1 %; PLT - PLATELET COUNT 102 10^3/uL (130-450); RED BLOOD COUNT 3.02 10^6/uL (4.70-6.10); RED CELL DISTRIBUTION WIDTH 14.2 % (12.0-15.0); WHITE BLOOD COUNT 7.9 x10^3/uL (4.8-10.8)
[2022-11-01] MEDS: MULTIVITAMIN W/MINERALS TABLET PO SCH (08:35)
--- NOTE | 2022-11-01 11:42 | Discharge Plan ---
Discharge Plan Problem Reviewed?: Yes Disposition: Home Health Service Condition: Fair Diet: Regular Activity Restrictions: Activity as Tolerated Shower Restrictions: No Driving Restrictions: Yes Assistance Devices: Walker Health Concerns: You were hospitalized to treat kidney failure and a high potassium level. We had to adjust alot of your medicines and many have now been stopped. Please follow the new list of medications provided here, eliminate the other medicines. You have become weakened from deconditioning. You should use a walker and you need assistance with someone walking next to you when you climb or descend stairs. A referral was sent to a Home Health agency to provide you with an in- home physical therapist, occupational therapist, RN to check your vital signs, bath aide (if you need one), and a healthcare social worker to arrange for any other things at home. You are strongly advised NOT to climb the spiral staircase in your home, until the physical therapist who will work with you at home, feels that it is safe for you to do so. Since you are seated most of the day, you have developed a small wound your buttocks. This needs to get zinc applied twice a day preferably, but at least once a day. Also offloading each buttock by using different pillows, or a "seat donut" should be done. Please see your primary care provider in the next 1 to 2 weeks, for hospital follow-up visit. Plan of Treatment: As above. Care Goals: Improvement in symptoms and stabilization are the goals. Assessment: These instructions are provided for you, and for your significant other, as reminders.I also spoke to your DPOA, your brother Juan who was informed of these instructions and restrictions. Additional Instructions or Follow Up instructions: If you have new or worsening symptoms, call your primary care provider for advic e, or come to the ER. Follow-Up Care: Home Health - RN, Home Health - PT, Home Health - OT No Smoking: If you smoke, Please STOP! Call for help. Follow-up with: Cole Gamboa MD [Credentialed Staff Provider] -
--- NOTE | 2022-11-01 13:03 | DISCHARGE SUMMARY ---
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 He had trouble getting in and out of his chair at home, sort of crumpling out of a chair today. He sustained no injury. EMS brought him in. He denies any fevers chills. Denies any alteration in bowel movements or urinary symptoms. Denies any cough. He is afebrile. He usually takes Lisinopril along with Lasix. His labs are significant for new PAUL with potassium of 5.3, BUN of 71, creatinine of 1.8, calculated GFR of 36, lactic acid was normal at 0.7. LFTs are normal. White count is 7.4 hemoglobin is 10.1 which is a bit diminished from previous. Urine analysis shows no suggestion of urinary tract infection. He is being admitted to treat significant PAUL and deh ydration causing weakness. - HOSPITAL COURSE Hospital Course: 1) Hyperkalemia Patient was on lisinopril which was put on hold since it possibly caused the PAUL. There were no dangerous dysrhythmias on telemetry. His blood pressure was normal and lisinopril was not resumed (2) PAUL (acute kidney injury) CT of abdomen pelvis was without any abnormalities. Got gentle IV hydration and we ordered he remain off of Lasix and Lisinopril. His renal function improved. He was discharged without any blood pressure meds. (3) Generalized weakness Suspected this was secondary to patient's PAUL, dehydration and probably orthostasis on the meds he was taking for HTN at home. The female partner Rimma Daley described that a year and a half ago he fell and had a head injury, which led to 10 weeks of hospitalization in [place], then 3 to 4 weeks in a rehab center. And ever since then he has been weak, with a poor gait, uses a walker. PT and OT worked with them. They advised SNF. He refused this. An order for Home Health PT and OT and bath aide was placed. They described their living arrangement: He walks with a walker, stays on one floor, he sleeps on a recliner for the past 6 years which is on that same floor, therefore he needed no hospital bed. There is a spiral staircase in the house and PT and OT advised that he not use that until OKd by Home Health PT and OT. He insisted he can climb spiral stairs and laughed at that advice. I then called his DPOA, his brother Juan in [place] and reviewed those restrictions with him. (4) Hx of TBI A year and a half ago he fell and had a head injury, which led to 10 weeks of hospitalization in [place], then 3 to 4 weeks in a rehab center. And ever since then he has been weak, with a poor gait, uses a walker. The patient had poor decision-making capacity and poor safety awareness. He was disheveled but refused to shower, until an MD order was written for him to shower. He worked with PT and OT. A referral for a Home Health agency to provide PT and OT was ordered. (5) Anemia He has chronic anemia. We checked his iron profile, vitamin B12 and folate. The B12 folate and iron studies were all normal. Hgb at discharge was 9.1. (6) Gluteal cleft wound He has a small sacral decubitus. It was treated with zinc. His female partner Rimma Daley was comfortable applying zinc as she has done before. Home Health RN was ordered to check on and manage this (7) Hx of Hypertension All his antihypertensive meds were put on hold because of hyperkalemia and PAUL. Blood pressure remained 110-140 systolic and he was discharged without any blood pressure meds. - ALLERGIES Allergies/Adverse Reactions: Allergies Allergy/AdvReac Type Severity Reaction Status Date / Time No Known Drug Allergies Allergy Verified 10/25/22 08:29 - MEDICATIONS Home Medications: Ambulatory Orders Medication Instructions Recorded Confirmed Lovastatin [Altoprev] 20 mg PO DAILY 12/29/20 10/25/22 Alfuzosin HCl [Alfuzosin HCl ER] 1 tab PO DAILY 10/25/22 10/25/22 Cholecalciferol (Vitamin D3) 1 cap PO DAILY 10/25/22 10/25/22 [Vitamin D3] Finasteride [Proscar] 1 tab PO DAILY 10/25/22 10/25/22 Inulin/Cholecalciferol (D3) [Fiber 1 tab PO DAILY 10/25/22 10/25/22 Gummies-Vitamin D3] Psyllium [Metamucil] 1 packet PO DAILY 10/25/22 10/25/22 Zinc Oxide 20% Oint [Zinc Oxide] 1 applic TOP PRN PRN #0 each 11/01/22 - PHYSICAL EXAM AT DISCHARGE General Appearance: positive: No acute distress, Alert, Other (Disheveled. Food crumbs on his clothes.) Eyes Bilateral: positive: Normal inspection, EOMI ENT: positive: ENT inspection nml, No signs of dehydration Neck: positive: Nml inspection, No JVD Respiratory: positive: No respiratory distress, Breath sounds nml Cardiovascular: positive: Regular rate & rhythm, No murmur Abdomen: positive: Non-tender, No distention Skin: positive: Warm, Dry Extremities: positive: Non-tender, No pedal edema Neurologic/Psychiatric: positive: Oriented x3, Other ( Has mild face droop when he speaks. Walks w/ shuffling gait. Has poor memory.) - LABS Result Diagrams: 11/01/22 07:18 11/01/22 07:18 - DIAGNOSTIC IMAGING Diagnostic Imaging Results: Final report reviewed - FOLLOW UP Follow Up: See PCP in the next 1 to 2 weeks for hospital follow-up visit. - TIME SPENT Time Spent in Discharge (Minutes): 60
== END 2022-11-01 13:26 | disposition home health service (06) | DRG 641 ==
LOC: EDUNIT# → ED 08:17 → MS2 12:15
PROVIDERS: ADMIT Specialist; ATTEND Internal Medicine
DX: E87.5 Hyperkalemia (principal); N17.9 Acute kidney failure, unspecified; E87.8 Other disorders of electrolyte and fluid balance, not elsewhere classified; E86.0 Dehydration; R32 Unspecified urinary incontinence; R35.0 Frequency of micturition; R53.1 Weakness; D64.9 Anemia, unspecified; L89.159 Pressure ulcer of sacral region, unspecified stage; I10 Essential (primary) hypertension; E78.00 Pure hypercholesterolemia, unspecified; T46.5X5A Adverse effect of other antihypertensive drugs, initial encounter; Z87.820 Personal history of traumatic brain injury; Y92.009 Unspecified place in unspecified non-institutional (private) residence as the place of occurrence of the external cause
CPT/HCPCS: 36415; 70450; 71045; 74177; 80048; 80053; 81001; 82330; 82607; 82728; 82746; 83540; 83605; 84466; 84484; 85018; 85025; 87040; 93005; 96360; 96361; 97116; 97161; 97166; 97530; 97535; 99284; 99285; A9270; Q9967; 87086

== ENCOUNTER 2022-11-17 13:56 | Outpatient (CLI) | payer MEDICARE ==
[2022-11-17 19:42] LABS: BASOPHILS # (AUTO) 0.1 10^3/uL (0.0-0.1); BASOPHILS % (AUTO) 0.7 %; EOSINOPHILS # (AUTO) 0.4 10^3/uL (0.0-0.7); EOSINOPHILS % (AUTO) 4.6 %; HCT - HEMATOCRIT 36.5 % (42.0-52.0); HGB - HEMOGLOBIN 11.2 g/dL (14.0-18.0); LYMPHOCYTES # (AUTO) 1.5 10^3/uL (1.5-3.5); LYMPHOCYTES % (AUTO) 18.6 %; MEAN CORPUSCULAR HEMOGLOBIN 29.9 pg (27.0-31.0); MEAN CORPUSCULAR HGB CONC 30.7 g/dL (32.0-36.0); MEAN CORPUSCULAR VOLUME 97.3 fL (80.0-94.0); MEAN PLATELET VOLUME 12.2 fL (7.4-11.4); MONOCYTES # (AUTO) 0.7 10^3/uL (0.0-1.0); MONOCYTES % (AUTO) 8.2 %; NEUTROPHILS # (AUTO) 5.4 10^3/uL (1.5-6.6); NEUTROPHILS % (AUTO) 67.7 %; PLT - PLATELET COUNT 146 10^3/uL (130-450); RED BLOOD COUNT 3.75 10^6/uL (4.70-6.10); RED CELL DISTRIBUTION WIDTH 14.1 % (12.0-15.0)
[2022-11-17 20:11] LABS: % IRON SATURATION 12 % (20-50); IRON 35 ug/dL (45-182); TOTAL IRON BINDING CAPACITY 290 ug/dL (250-450); TRANSFERRIN 207 mg/dL (180-329)
== END 2022-11-17 13:57 | disposition home or self-care (01) ==
LOC: LAB.S 13:56
PROVIDERS: ATTEND Internal Medicine
DX: D64.9 Anemia, unspecified (principal)
CPT/HCPCS: 36415; 83540; 84466; 85025

== ENCOUNTER 2022-11-17 16:18 | Outpatient (CLI) | payer MEDICARE | END 2022-11-17 23:59 | disposition EMS.NT | LOC: EMS 16:18 | DX: Z03.89 Encounter for observation for other suspected diseases and conditions ruled out (principal) ==

== ENCOUNTER 2022-12-22 02:17 | Outpatient (CLI) | payer MEDICARE | END 2022-12-22 23:59 | disposition EMS.NT | LOC: EMS 02:17 | DX: Z03.89 Encounter for observation for other suspected diseases and conditions ruled out (principal) ==

== ENCOUNTER 2022-12-26 19:45 | Outpatient (CLI) | payer MEDICARE | END 2022-12-26 19:46 | disposition EMS.NT | LOC: EMS 19:45 | DX: Z03.89 Encounter for observation for other suspected diseases and conditions ruled out (principal) ==

== ENCOUNTER 2023-01-10 17:54 | Outpatient (CLI) | payer MEDICARE | END 2023-01-10 23:59 | disposition EMS.NT | LOC: EMS 17:54 | DX: Z03.89 Encounter for observation for other suspected diseases and conditions ruled out (principal) ==

== ENCOUNTER 2023-01-16 14:15 | Outpatient (CLI) | payer MEDICARE | END 2023-01-16 23:59 | disposition EMS.NT | LOC: EMS 14:15 | DX: Z03.89 Encounter for observation for other suspected diseases and conditions ruled out (principal) ==

== ENCOUNTER 2023-01-20 12:31 | Outpatient (CLI) | payer MEDICARE ==
--- NOTE | 2023-01-20 18:16 | Ultrasound Report ---
PROCEDURE: Abdomen Complete INDICATIONS: BLOOD IN STOOL TECHNIQUE: Real-time scanning was performed of the abdominal and retroperitoneal organs, with image documentatio n. COMPARISON: Correlation is made with CT, 11/25/2022. FINDINGS: This study is highly limited by patient immobility and bowel gas. Liver: Liver is normal in size and heterogeneous in echotexture. No focal liver abnormality is seen. Gallbladder: The gallbladder is not well seen. No focal gallbladder abnormality is seen. Biliary ducts: Not seen. Pancreas: Not seen. Spleen: Not seen. Kidneys: Kidneys are normal in size and echotexture. Right kidney measures 9.3 cm long; left kidney measures 9.2 cm long. No hydronephrosis or nephrolithiasis. No solid masses. No complex renal cyst ic lesions which require follow-up. Aorta: Visualized aorta is normal in caliber at less than 3 cm. Iliacs: Not seen. IVC: Intrahepatic inferior vena cava is patent. Miscellaneous: No free abdominal fluid. IMPRESSION: Highly limited study, without a significant abnormality seen. Reviewed by: Michael Lockwood MD on 01/20/2023 5:14 PM JENAE Approved by: Michael Lockwood MD on 01/20/2023 5:14 PM JENAE Station ID: [id number]
== END 2023-01-20 12:32 | disposition home or self-care (01) ==
LOC: DI 12:31
PROVIDERS: ATTEND Internal Medicine
DX: K92.1 Melena (principal); D64.9 Anemia, unspecified; R41.0 Disorientation, unspecified; N32.81 Overactive bladder; N40.1 Benign prostatic hyperplasia with lower urinary tract symptoms; R97.20 Elevated prostate specific antigen [PSA]; R35.1 Nocturia

== ENCOUNTER 2023-01-29 16:31 | Outpatient (CLI) | payer MEDICARE | END 2023-01-29 16:32 | disposition EMS.NT | LOC: EMS 16:31 | DX: S00.03XA Contusion of scalp, initial encounter (principal); W01.0XXA Fall on same level from slipping, tripping and stumbling without subsequent striking against object, initial encounter; Y92.009 Unspecified place in unspecified non-institutional (private) residence as the place of occurrence of the external cause ==

== ENCOUNTER 2023-05-04 11:50 | Outpatient (CLI) | payer MEDICARE ==
[2023-05-04 14:45] LABS: BASOPHILS # (AUTO) 0.1 10^3/uL (0.0-0.1); BASOPHILS % (AUTO) 0.6 %; EOSINOPHILS # (AUTO) 0.4 10^3/uL (0.0-0.7); EOSINOPHILS % (AUTO) 4.1 %; HCT - HEMATOCRIT 37.6 % (42.0-52.0); HGB - HEMOGLOBIN 11.5 g/dL (14.0-18.0); LYMPHOCYTES # (AUTO) 1.8 10^3/uL (1.5-3.5); LYMPHOCYTES % (AUTO) 18.2 %; MEAN CORPUSCULAR HGB CONC 30.6 g/dL (32.0-36.0); MEAN CORPUSCULAR VOLUME 98.2 fL (80.0-94.0); MEAN PLATELET VOLUME 12.2 fL (7.4-11.4); MONOCYTES # (AUTO) 0.7 10^3/uL (0.0-1.0); MONOCYTES % (AUTO) 7.4 %; NEUTROPHILS # (AUTO) 6.8 10^3/uL (1.5-6.6); NEUTROPHILS % (AUTO) 69.4 %; PLT - PLATELET COUNT 106 10^3/uL (130-450); RED BLOOD COUNT 3.83 10^6/uL (4.70-6.10); RED CELL DISTRIBUTION WIDTH 14.4 % (12.0-15.0); WHITE BLOOD COUNT 9.9 x10^3/uL (4.8-10.8)
[2023-05-04 14:59] LABS: FERRITIN 74.5 ng/mL (23.9-336.2)
== END 2023-05-04 11:51 | disposition home or self-care (01) ==
LOC: LAB.S 11:50
PROVIDERS: ATTEND Internal Medicine
DX: E61.1 Iron deficiency (principal); K92.1 Melena; R79.89 Other specified abnormal findings of blood chemistry
CPT/HCPCS: 36415; 82728; 83540; 84466; 85025

== ENCOUNTER 2023-05-23 14:25 | Outpatient (CLI) | payer MEDICARE | END 2023-05-23 14:26 | disposition short-term general hospital (02) | LOC: EMS 14:25 | DX: T18.120A Food in esophagus causing compression of trachea, initial encounter (principal); W44.F3XA Food entering into or through a natural orifice, initial encounter | CPT/HCPCS: A0425; A0429 ==

== ENCOUNTER 2023-06-13 11:42 | Outpatient (CLI) | payer MEDICARE ==
[2023-06-13 14:43] LABS: BASOPHILS # (AUTO) 0.1 10^3/uL (0.0-0.1); BASOPHILS % (AUTO) 0.7 %; EOSINOPHILS # (AUTO) 0.3 10^3/uL (0.0-0.7); EOSINOPHILS % (AUTO) 3.9 %; HCT - HEMATOCRIT 38.8 % (42.0-52.0); HGB - HEMOGLOBIN 11.8 g/dL (14.0-18.0); LYMPHOCYTES # (AUTO) 1.6 10^3/uL (1.5-3.5); LYMPHOCYTES % (AUTO) 21.9 %; MEAN CORPUSCULAR HEMOGLOBIN 30.2 pg (27.0-31.0); MEAN CORPUSCULAR HGB CONC 30.4 g/dL (32.0-36.0); MEAN CORPUSCULAR VOLUME 99.2 fL (80.0-94.0); MEAN PLATELET VOLUME 11.8 fL (7.4-11.4); MONOCYTES # (AUTO) 0.6 10^3/uL (0.0-1.0); NEUTROPHILS # (AUTO) 4.8 10^3/uL (1.5-6.6); NEUTROPHILS % (AUTO) 65.4 %; PLT - PLATELET COUNT 101 10^3/uL (130-450); RED BLOOD COUNT 3.91 10^6/uL (4.70-6.10); RED CELL DISTRIBUTION WIDTH 13.1 % (12.0-15.0); WHITE BLOOD COUNT 7.4 x10^3/uL (4.8-10.8)
[2023-06-13 15:06] LABS: ALBUMIN 3.6 g/dL (3.2-5.5); ALBUMIN/GLOBULIN RATIO 0.9 (1.0-2.2); BILIRUBIN,TOTAL 0.3 mg/dL (0.2-1.0); CREATININE 1.1 mg/dL (0.6-1.3); POTASSIUM 4.4 mmol/L (3.5-4.5); TOTAL PROTEIN 7.5 g/dL (6.4-8.9)
[2023-06-13 21:37] LABS: ESTIMATED AVERAGE GLUCOSE 120 mg/dL (70-100); HEMOGLOBIN A1c% 5.8 % (4.27-6.07)
== END 2023-06-13 11:43 | disposition home or self-care (01) ==
LOC: LAB.S 11:42
PROVIDERS: ATTEND Internal Medicine
DX: I10 Essential (primary) hypertension (principal); R73.9 Hyperglycemia, unspecified; R71.0 Precipitous drop in hematocrit
CPT/HCPCS: 36415; 80053; 82607; 82746; 83036; 85025

== ENCOUNTER 2023-08-09 16:24 | Outpatient (CLI) | payer MEDICARE | END 2023-08-09 16:36 | disposition EMS.NT | LOC: EMS 16:24 | DX: R53.1 Weakness (principal); W01.0XXA Fall on same level from slipping, tripping and stumbling without subsequent striking against object, initial encounter ==

== ENCOUNTER 2023-08-15 16:04 | Outpatient (CLI) | payer MEDICARE ==
--- NOTE | 2023-08-16 07:31 | XRAY Report ---
PROCEDURE: Chest 2V INDICATIONS: SLEEP APNEA,IRON DEFICIENCY,EDEMA TECHNIQUE: 2 views of the chest were acquired. COMPARISON: X-ray, 10/25/2022. FINDINGS: Surgical changes and devices: None. Lungs and pleura: Left basilar opacities are likely scars and atelectasis. No pleural effusions or p neumothorax. Mediastinum: Mediastinal contours appear normal. Heart size is normal. Bones and chest wall: No suspicious bony lesions. Overlying soft tissues appear unremarkable. IMPRESSION: Left basilar scars and atelectasis. Reviewed by: Mahi Larry MD on 08/16/2023 7:30 AM PDT Approved by: Mahi Larry MD on 08/16/2023 7:30 AM PDT Station ID: [id number]
== END 2023-08-15 16:05 | disposition home or self-care (01) ==
LOC: DI.S 16:04
PROVIDERS: ATTEND Internal Medicine
DX: J98.11 Atelectasis (principal); J98.4 Other disorders of lung

== ENCOUNTER 2023-08-16 14:43 | Outpatient (CLI) | payer MEDICARE ==
[2023-08-16 19:56] LABS: BASOPHILS # (AUTO) 0.1 10^3/uL (0.0-0.1); BASOPHILS % (AUTO) 0.6 %; EOSINOPHILS # (AUTO) 0.3 10^3/uL (0.0-0.7); EOSINOPHILS % (AUTO) 3.8 %; HCT - HEMATOCRIT 40.4 % (42.0-52.0); HGB - HEMOGLOBIN 12.2 g/dL (14.0-18.0); LYMPHOCYTES # (AUTO) 1.5 10^3/uL (1.5-3.5); MEAN CORPUSCULAR HEMOGLOBIN 30.3 pg (27.0-31.0); MEAN CORPUSCULAR HGB CONC 30.2 g/dL (32.0-36.0); MEAN CORPUSCULAR VOLUME 100.5 fL (80.0-94.0); MEAN PLATELET VOLUME 12.6 fL (7.4-11.4); MONOCYTES # (AUTO) 0.4 10^3/uL (0.0-1.0); MONOCYTES % (AUTO) 5.2 %; NEUTROPHILS # (AUTO) 5.9 10^3/uL (1.5-6.6); PLT - PLATELET COUNT 85 10^3/uL (130-450); RED BLOOD COUNT 4.02 10^6/uL (4.70-6.10); RED CELL DISTRIBUTION WIDTH 13.2 % (12.0-15.0); WHITE BLOOD COUNT 8.2 x10^3/uL (4.8-10.8)
[2023-08-16 20:17] LABS: ALBUMIN 3.5 g/dL (3.2-5.5); BILIRUBIN,TOTAL 0.3 mg/dL (0.2-1.0); CALCIUM 9.5 mg/dL (8.5-10.3); POTASSIUM 4.4 mmol/L (3.5-4.5)
[2023-08-16 20:37] LABS: FERRITIN 61.8 ng/mL (23.9-336.2)
== END 2023-08-16 14:44 | disposition home or self-care (01) ==
LOC: LAB.S 14:43
PROVIDERS: ATTEND Internal Medicine
DX: E61.1 Iron deficiency (principal); G47.30 Sleep apnea, unspecified; I87.2 Venous insufficiency (chronic) (peripheral); R60.9 Edema, unspecified
CPT/HCPCS: 36415; 80053; 82728; 83880; 85025

== ENCOUNTER 2023-09-16 19:54 | Outpatient (CLI) | payer MEDICARE | END 2023-09-16 23:59 | disposition EMS.NT | LOC: EMS 19:54 | DX: R53.1 Weakness (principal) ==